=== PATIENT | female | born 2005 | race Caucasian/White ===

== ENCOUNTER 2024-07-04 14:39 | Emergency (ER) | payer BC, SELFPAY ==
[2024-07-04 14:43] VITALS: BP 125/76; PULSE 94; TEMP 36.9; O2SAT 98; BMI 23.3
--- NOTE | 2024-07-04 14:53 | ED_ITS ---
HPI - Ear Problem General Chief complaint: Ear Stated complaint: EARACHE Time Seen by Provider: 07/04/24 14:41 Source: patient and family Mode of arrival: walk-in Limitations: no limitations History of Present Illness HPI Narrative: Patient is a 18-year-old female who presents to the emergency department for the evaluation of left ear pain that began last night. She reports a pressure and plugged sensation to the left ear and believes that there was drainage from the left ear although she did not look at it so she does not know what it may have been, she states I think it was clear . No fevers, upper respiratory symptoms, nasal congestion or coughing. She has no concern for . No medications prior to arrival Related Data Previous Rx's ?Medication ?Instructions ?Recorded cetirizine 5 mg-pseudoephedrine ER 1 tab PO BID #10 tabs 07/04/24 120 mg tablet,extended release,12hr (Zyrtec-D) Allergies Allergy/AdvReac Type Severity Reaction Status Date / Time No Known Drug Allergies Allergy Verified 07/04/24 14:47 Review of Systems ROS Constitutional Denies: fever or chills Ears, nose, mouth, and throat Reports: ear pain and ear discharge; Denies: throat pain or nasal congestion Cardiovascular Denies: chest pain Respiratory Denies: shortness of breath Gastrointestinal Denies: nausea or vomiting Musculoskeletal Denies: back pain Integumentary/Breast Denies: rash Neurological Denies: headache, numbness in extremities or weakness in extremities Hematologic/Lymphatic Denies: easy bruising or easy bleeding Exam Narrative Exam Narrative: Gen.: Awake, alert, in no distress Head: Normocephalic, atraumatic ENT: Moist mucous membranes bilateral TMs are partially obscured by dark wax, no erythema or injection of the TMs. Left external canal is mildly erythematous and tender. No drainage or bleeding noted Respiratory: No respiratory distress Extremities: Moves extremities equally Psych: Normal mood and affect Neuro: No focal neuro deficit Skin: Warm, dry, intact Constitutional Vital Signs, click to edit/add: Last Vital Signs Temp 98.4 F 07/04/24 14:43 Pulse 94 H 07/04/24 14:43 Resp 16 07/04/24 14:43 BP 125/76 07/04/24 14:43 Pulse Ox 98 07/04/24 14:43 O2 Del Method Room Air 07/04/24 14:43 Course Vital Signs Vital signs: Vital Signs Temperature 98.4 F 07/04/24 14:43 Pulse Rate 94 H 07/04/24 14:43 Respiratory Rate 16 07/04/24 14:43 Blood Pressure 125/76 07/04/24 14:43 Pulse Oximetry 98 07/04/24 14:43 Oxygen Delivery Method Room Air 07/04/24 14:43 Temperature 98.4 F 07/04/24 14:43 Pulse Rate 94 H 07/04/24 14:43 Respiratory Rate 16 07/04/24 14:43 Blood Pressure 125/76 07/04/24 14:43 Pulse Oximetry 98 07/04/24 14:43 Oxygen Delivery Method Room Air 07/04/24 14:43 Medical Decision Making MDM Narrative Medical decision making narrative: Exam is consistent with mild left otitis externa and cerumen in the canals, patient given Ciprodex drops to be used in the left ear for 5 days. Zyrtec also prescribed for home for plugged sensation. Follow-up with PCP and return to the ER if symptoms change or worsen SUPERVISED APC VISIT, PHYSICIAN ATTESTATION: Based on the medical record the care appears appropriate. ? Medical Records Medical records reviewed: Yes I reviewed the patient's medical records Discharge Plan Discharge Stand Alone Forms: Work/School Release, Portal Instructions Chief Complaint: Ear Clinical Impression: Left otitis externa, Left ear pain Patient Disposition: Home, Self-Care Time of Disposition Decision: 14:52 Condition: Good Prescriptions / Home Meds: New cetirizine-pseudoephedrine [Zyrtec-D] 5-120 mg tablet extended release 12 hr 1 tab PO BID Qty: 10 0RF Print Language: Estonian Instructions: [facility] (ED) Referrals: DEANNE GIRON [Primary Care Provider] - 1 week
[2024-07-04] MEDS: CIPROFLOXACIN HCL/DEXAMETH 0.3%/0.1% OTIC SUSP 150 DROP/7.5 ML BOTTLE OT (14:58)
== END 2024-07-04 14:59 | disposition home or self-care (01) ==
PROVIDERS: Emergency Provider Emergency Medicine; PCP Family Medicine
DX: H60.92 Unspecified otitis externa, left ear (principal); H92.02 Otalgia, left ear
CPT/HCPCS: 99283

== ENCOUNTER 2025-07-29 13:36 | Emergency (ER) | payer BC, MEDICAID, SELFPAY ==
--- OUTSIDE RECORDS SUMMARY | 2025-07-09 11:33 | XMS_ITS ---
Author Name Auto Generated Organization OHIP Care Team Providers Care Event Promoter Name Role Phone JOSH DIAL Attending Unavailable LAZARUS ESPINOSA Attending Unavailable JOSH DIAL Attending Unavailable LAZARUS ESPINOSA Referring Unavailable JOSH DIAL Attending Unavailable JOSH DIAL Attending Unavailable JOSH DIAL Attending Unavailable SELF Referring Unavailable NITZA JAIMES Attending Unavailable MARLEN THOMAS Attending Unavailable DARNELL MOSER Attending Unavailable LAZARUS ESPINOSA Referring Unavailable LAZARUS ESPINOSA Referring Unavailable Mario Crowder Admitting Unavailable Mario Crowder Attending Unavailable NO FAMILY, PHYSICIAN Primary Care Unavailable PROBLEMS DATE TYPE CONDITION / CODE ATTENDING STATUS [facility] 06/29/2025 Active Chronic migraine without aura, intractable, without status migrainosus / G43.719(ICD-10) NITZA JAIMES Active [facility] 04/06/2025 Active Breast pain / N64.4(ICD-10) DARNELL MOSER Active [facility] 03/09/2025 Active New Patient / UNK(Unknown) MARLEN THOMAS Active [facility] 01/12/2025 Unknown Abdominal disten jesenia (gaseous) / R14.0(ICD-10) Mario Crowder Active [facility] PROCEDURES No Procedure Records Found RESULTS PROGRESS Observed: 06/29/2025 1:00 PM Status: COMPLETED Source: [facility] HNO ID: [id number] Author: NITZA JAIMES PA-C Service: ? Author Type: Physician Director [employer] Type: Progress Notes Filed: 06/29/2025 13:24 Note Text: Headache Center - Follow up Virtual Visit This visit was conducted as a virtual visit, with patient's permission, via Zoom. Patient location - [place] Santoro was identified by name and and consented to the video evaluation and its limitations. Based on this evaluation it may be necessary for them to schedule a follow up evaluation with me or other neurologists for formal physical examination and if necessary,other studies. I have communicated my name and active licensure. The patient's identity and physical location were verified at the time of this visit. Either the patient or their legal industrial relations representative has been informed of the risks and benefits of -- and alternatives to -- treatment through a remote evaluation and consents to proceed with the evaluation remotely. Accompanied by: Self Primary Problem List: There is no problem list on file for this patient. Chief Complaint: 3 month follow up Impression and Plan from last visit: 03/09/[address] Thomas IMPRESSION: Komal Santoro is a 19 year old year old female with a significant past medical history of OCD (on Prozac and Buspar), IBS, acne who presents for further evaluation regarding headaches. On today's evaluation, the patient meets criteria for chronic migraine. - In the setting of a normal neurological physical examination and typical migraine features, there is no indication for additional neuroimaging at this time. - For symptomatic relief, on a preventative basis, patient was initiated on Topiramate 100 mg qHS. The patient was counseled to take this medication on a daily basis to reduce the severity and frequency of migraine. Keeping a strict log of headaches was encouraged and discussed with the patient. - As an abortive agent, the patient was initiated on Rizatriptan 10 mg PRN at the onset of the headache, which can be repeated if symptoms do not resolve in 2 hours. The patient was counseled not to exceed any abortive agents more than 10 days a month with the concern for medication overuse headache. - Follow-up in 3-6 months PRN. PLAN: Diagnosis: Chronic migraine Preventive: Topiramate 100 mg qHS Abortive: Rizatriptan 10 mg PRN Interval Headache History: Komal Santoro is a 19 year old year old female, with a history of OCD, IBS, acne and chronic migraine following up today virtually for 3 month follow up. Komal reports a 50% improvement in migraine frequency since starting Topamax. She currently experiences approximately 10 severe migraine days, 10 mild days, and 10 headache-free days per month. She has tried rizatriptan without relief and did not experience any side effects. She has limited her use of Excedrin to 1-2 times over the last 3-4 months, whereas she previously used it more frequently. Komal reports daily paresthesias in her hands and feet, which are not overly bothersome - attributes to topamax. She denies any history of heart attack, stroke, or coronary artery disease. She is unsure of her current blood pressure and pulse, but chart review indicates readings in the 120s-130s/70s with pulses in the mid to high 70s or 80s. Headache 1 Onset: - Age 9 Location: holcephalic Quality/Description: throbbing Associated Symptoms: Photophobia: yes Phonophobia: yes Nausea: yes Vomiting: yes Other symptoms: lightheadedness and osmophobia Worse with activity: yes Number of migraine headache days/month: 10 Number of NON-migraine headache days/month: 10 Total Number of headache days/month: 20 Number of headache free days/month: 10 Aura: blurred vision and none Days missed from work or school in the last month: 2 days Preventative: topamax 100mg Abortive: rizatriptan 10mg Contraception: IUD Anti-Anxiety Buspirone (Buspar) Anti-Convulsant Topiramate (Topamax, Trokendi XL, Qudexy) Anti-Depressant and Antipsychotic Fluoxetine (Prozac) Sertraline (Zoloft) Anti-Migraine Rizatriptan (Maxalt) Over the Counter Medications Acetaminophen/Aspirin/Caffeine (Excedrin, Goody?s) No past medical history on file. No past surgical history on file. ALLERGIES Not on File Current Medications: isotretinoin (ACCUTANE PO) Take by mouth. INTRAUTERINE DEVICE, IUD, INTRAUTERINE by INTRAUTERINE route. busPIRone (BUSPAR) 10 mg tablet Take 1 tablet by mouth once daily. Clindamycin Phosphate (CLEOCIN T) 1 % lotion Apply to affected area two times a day. FLUoxetine (PROZAC) 20 mg capsule Take 1 capsule by mouth once daily. CAPMIST DM 60-15-400 mg tab Take 1 tablet by mouth every 4 hours as needed. LINZESS 72 mcg capsule Take 1 capsule by mouth once daily. omeprazole (PRILOSEC) 20 mg capsule Take 1 capsule by mouth once daily. spironolactone (ALDACTONE) 50 mg tablet Take 50 mg by mouth once daily. Sulfacetamide Sodium, Acne, 10 % susp apply a thin layer to the face DAILY FOR 30 DAYS metoprolol succinate ER (TOPROL XL) 25 mg 24 hr tablet Take 1 tablet by mouth once daily. topiramate (TOPAMAX) 100 mg tablet Take 1 tablet by mouth daily at bedtime. SUMAtriptan (IMITREX) 100 mg tablet Take 1 tablet by mouth as needed for migraine headache (see administration instructions). May repeat dose after 2 hours if needed. Maximum daily dose is 200 mg per day. Max 9 to 10 days a month. I have reviewed the Health Status Assessment responses and discussed these with the patient: yes Nitza Jaimes PA-C HEADACHE SCORES: 03/07/2025 06/29/2025 Headache Questions ID Migraine Screener: 3 (Positive) ER visits in the last year: 3 ER visits since last office visit: 0 Hospital stays in the last year: 0 Hospital stays since last office visit 0 Limited ADLs in the last month: 15 15 Days missed from work or school in the last month: 5 2 Days headache pain free in the last month: 5 10 Days per month with ALL of the following symptoms - decreased productivity, light sensitivity and nausea: 10 10 Initial improvement of headache after botox injection at last visit: Not applicable, I did not have a botox injection at my last visit PRN medication usage in the last month: 25 5 Patient impression of improvement since last visit: Minimally improved 03/07/2025 06/29/2025 HIT-6 HIT-6 66 (Severe impact) 65 (Severe impact) 03/07/2025 06/29/2025 ANNIE - 2/7 SCORES ANNIE-2 Score 2 1 03/07/2025 06/29/2025 Migraine Specific QOL - Higher scores indicate better HRQL Role Function-Restrictive Transformed Score (range: 0-100) 40 57.14 Role Function-Preventive Transformed Score (range: 0-100) 45 60 Emotional Function Transformed Score (range: 0-100) 46.67 60 03/07/2025 06/29/2025 PHQ-9 Score 5 2 Review of Systems: Review of system: Patient reports no change from the prior visit. Physical Examination: Vital Signs: No vital signs taken for this visit due to nature of virtual visit. General: well appearing, in no acute distress, alert Pain Behaviors: no pain behaviors observed Neurological: Mental Status: Alert and oriented to person, place and time. Affect is normal. Speech is spontaneous and fluent without dysarthria. Short and detention memory, cognition and general fund of knowledge are good. Attention span and concentration are excellent. HEENT: Head is normocephalic and features were symmetric. Musculoskeletal: Patient able to sit up right in chair for entirety of visit. Cranial Nerves: III, IV, -EOMI: full. VII-face is symmetric without evidence of weakness. VIII-hearing intact. IMPRESSION/PLAN: Chronic migraine without aura, intractable, without status migrainosus (primary encounter diagnosis) Komal Santoro is a 19 year old year old female, with a history of OCD, IBS, acne and chronic migraine following up today virtually for 3 month follow up. Their neurological examination is essentially normal at this visit although this is limited due to nature of telehealth. 1. Chronic migraine without aura, intractable, without status migrainosus (G43.719) - Discussed options: increase Topamax, add metoprolol to Topamax, or switch from Topamax to metoprolol; patient prefers to continue Topamax and add metoprolol. - Start metoprolol ER 25 mg PO QHS; reviewed potential side effects including constipation, fatigue, and exercise intolerance. - If metoprolol is well-tolerated, may consider tapering off Topamax in the future. - Trial sumatriptan 100 mg PRN; reviewed dosing and potential side effects; discussed [id number] nature of triptans and availability of other options if ineffective. - Discontinue rizatriptan - Patient agrees to treatment plan and verbalizes understanding. - Follow-up in 3 months. Recording using [employer] software for draft documentation of the visit was discussed with the patient/authorized industrial relations representative; all questions welcomed and answered. Patient/authorized industrial relations representative agreed to proceed HEADACHE MANAGEMENT: (You are the primary guardian of your health and headache. Keep track of all medications: This includes the reason for use, side effects and benefits.) MEDICATION TREATMENT: Medications to Start Taking metoprolol succinate ER (TOPROL XL) 25 mg 24 hr tablet Take 1 tablet by mouth once daily. topiramate (TOPAMAX) 100 mg tablet Take 1 tablet by mouth daily at bedtime. SUMAtriptan (IMITREX) 100 mg tablet Take 1 tablet by mouth as needed for migraine headache (see administration instructions). May repeat dose after 2 hours if needed. Maximum daily dose is 200 mg per day. Max 9 to 10 days a month. Follow-up: 3 months, PRN I spent a total of 15 minutes on the date of the service which included preparing to see the patient, [id number] patient care, completing clinical documentation, obtaining and/or reviewing separately obtained history, performing a medically appropriate examination, counseling and educating the patient/family/caregiver, and ordering medications, tests, or procedures. Nitza Jaimes PA-C Headache Section [facility] [employer] D BREAST LTD RT Observed: 3:45 PM Status: F Source: [facility] * * *Final Report* * * DATE OF EXAM: Apr 06 2025 3:45PM CAW 0594 - Ludesi BREAST LTD RT / PROCEDURE REASON: Breast pain * * * * Physician Interpretation * * * * RESULT: [address] [place] [address] #[id number] - [employer] US BREAST Omniata RT #[id number] - [facility] Super Vitamin D BREAST LTD LT HISTORY: 19 year-old patient presents for diagnostic evaluation of focal pain in the lower outer right breast and palpable area in the upper outer left breast. Patient states no personal history of breast cancer. The patient has a family history of breast cancer. COMPARISON STUDIES: No prior imaging studies are available for comparison. ULTRASOUND TECHNIQUE: Targeted ultrasound of the indicated area was performed. Aburto scale images were saved. ULTRASOUND FINDINGS: There are no suspicious sonographic findings to correspond with the focal pain in the right breast at 6 o'clock, at 7 o'clock and at 8 o'clock. There are no suspicious sonographic findings to correspond with the area of palpable concern in the left breast at 1 o'clock, at 2 o'clock, at 3 o'clock and at 12 o'clock. IMPRESSION: There is no suspicious imaging finding to correspond with the focal pain in the right breast at 6 o'clock, at 7 o'clock and at 8 o'clock. Clinical evaluation and follow-up recommended for symptoms without imaging correlate. There is no suspicious imaging finding to correspond with the area of palpable concern in the left breast at 1 o'clock, at 2 o'clock, at 3 o'clock and at 12 o'clock. Clinical evaluation and follow-up recommended for symptoms without imaging correlate. The patient had outside ultrasound in March 2024 recommending 6-month follow-up of the finding at the 3:00 axis of the left breast. However, images are not available for review/comparison. Recommend obtaining outside images for complete evaluation. This was discussed with Darnell Moser CNP. There is no sonographic evidence of malignancy in the imaged areas. Follow up with ACR and NCCN guidelines. BI-RADS Category 1: Negative Interpreting Radiologist: Anna Kelly M.D. Electronically signed on: 04/06/2025 Billiard Table Mechanic: FREEMAN Transcribe Date/Time: Apr 06 2025 3:42P Dictated by : ANNA KELLY MD This examination was interpreted and the report reviewed and electronically signed by: ANNA KELLY MD on Apr 06 2025 4:17PM EST [id number] [employer] Observed: 3:42 PM Status: F Source: [facility] * * *Final Report* * * DATE OF EXAM: Apr 06 2025 3:42PM CAW 0593 - Ludesi BREAST Omniata LT / PROCEDURE REASON: Breast pain * * * * Physician Interpretation * * * * RESULT: [place] [id number] [facility] [address] [place] [address] #[id number] - [facility] US BREAST LTD #[id number] - [facility] BREAST LTD LT HISTORY: 19 year-old patient presents for diagnostic evaluation of focal pain in the lower outer right breast and palpable area in the upper outer left breast. Patient states no personal history of breast cancer. The patient has a family history of breast cancer. COMPARISON STUDIES: No prior imaging studies are available for comparison. ULTRASOUND TECHNIQUE: Targeted ultrasound of the indicated area was performed. Aburto scale images were saved. ULTRASOUND FINDINGS: There are no suspicious sonographic findings to correspond with the focal pain in the right breast at 6 o'clock, at 7 o'clock and at 8 o'clock. There are no suspicious sonographic findings to correspond with the area of palpable concern in the left breast at 1 o'clock, at 2 o'clock, at 3 o'clock and at 12 o'clock. IMPRESSION: There is no suspicious imaging finding to correspond with the focal pain in the right breast at 6 o'clock, at 7 o'clock and at 8 o'clock. Clinical evaluation and follow-up recommended for symptoms without imaging correlate. There is no suspicious imaging finding to correspond with the area of palpable concern in the left breast at 1 o'clock, at 2 o'clock, at 3 o'clock and at 12 o'clock. Clinical evaluation and follow-up recommended for symptoms without imaging correlate. The patient had outside ultrasound in March 2024 recommending 6-month follow-up of the finding at the 3:00 axis of the left breast. However, images are not available for review/comparison. Recommend obtaining outside images for complete evaluation. This was discussed with Darnell Moser CNP. There is no sonographic evidence of malignancy in the imaged areas. Follow up with ACR and NCCN guidelines. BI-RADS Category 1: Negative Interpreting Radiologist: Anna Kelly M.D. Electronically signed on: 04/06/2025 Billiard Table Mechanic: FREEMAN Transcribe Date/Time: Apr 06 2025 3:42P Dictated by : ANNA KELLY MD This examination was interpreted and the report reviewed and electronically signed by: ANNA KELLY MD on Apr 06 2025 4:17PM EST [id number] PROGRESS Observed: 04/06/2025 2:30 PM Status: COMPLETED Source: [facility] HNO ID: [id number] Author: STANLEY MAS RT(Portia) Service: ? Author Type: Technologist Type: Progress Notes Filed: 04/06/2025 16:07 Note Text: Radiology Service Progress Note PATIENT NAME: Komal Santoro DATE OF SERVICE: April 06, 2025 TIME: 4:06 PM PATIENT IDENTITY VERIFICATION COMPLETED USING TWO (2) IDENTIFIERS: Name and Date of confirmed by patient verbally. FALL SCREENING: Has the patient had 2 falls in the last year or 1 fall with injury or currently using an Ambulatory Assistive Device (Walker, Cane, Wheelchair, Crutches, etc.)? No PATIENT GENDER DATA: Assigned female at . status: : No status: NO. PATIENT RELEVANT IMPLANT DATA REVIEWED: Yes PATIENT PRESENTS WITH AN IMPLANTABLE OR ATTACHED HOOP COILER: No RADIOLOGY DEPARTMENT: Mammography PERIPHERAL IV DATA: Not applicable SIGNED BY: RT Avinash(R) April 06, 2025 4:06 PM PROGRESS Observed: 04/06/2025 1:00 PM Status: COMPLETED Source: [facility] HNO ID: [id number] Author: DARNELL MOSER APRN.CALL OUT CLERK Service: ? Author Type: Nurse Practitioner Type: Progress Notes Filed: 04/06/2025 16:37 Note Text: MEDICAL BREAST HISTORY of PRESENT ILLNESS: Komal Santoro is a 19 year old premenopausal woman who presents to the [facility] [place] today for evaluation of breast pain and a lump. Patient reports having new left breast pain for the past 4-5 months. She recently had a baby about 15 months ago and stopped about 10-11 months ago. She has seen her OB provider during this time and a left breast ultrasound was completed revealing a 3.0 x 2.1 x 0.4 cm nonspecific area of intermediate echogenicity. She was referred to the breast center for further care and work up. She notes that her breast pain started on the left side and she didn't feel an area of concern at first, but her daughter laid on top of her breast which elicited the pain. She also reports now having pain on her right breast as well. Patient otherwise denies any new skin changes, dimpling, pain, nipple discharge, or nipple inversion of either breast. PERSONAL BREAST HISTORY: Past breast history (prior to this encounter) is as follows: Breast biopsy: No Breast cysts: No Breast surgery: No Breast cancer: No CANCER SURVEILLANCE: Mammograms: No Breast MRI: No RISK FACTORS FOR BREAST CANCER: Age at the onset of menses: 13 years of age. P: 1 Age at the of first child: 18 years of age. She breast fed for 6 months total. Age at menopause: The patient is not menopausal at this time. Post-menopausal hormone therapy: Not applicable She has an intact uterus and ovaries She uses an IUD. History of Mantle Radiation prior to the age of 29: No Current Weight: 146 lb Mammographic density: Unknown Personal History of Benign Atypical Breast Biopsy: No Alcohol use: Never PAST MEDICAL HISTORY: No past medical history on file. PAST SURGICAL HISTORY: No past surgical history on file. SOCIAL HISTORY: Social History Tobacco Use Smoking status: Never Passive exposure: Never Smokeless tobacco: Never Substance Use Topics Alcohol use: Not Currently Drug use: Never Caffeine intake: 1 cup of coffee couple times a week Exercise: Few times a week. FAMILY HISTORY: Family history of breast cancer: maternal aunt of breast cancer around 50-60s. Family history of ovarian cancer: None Number of sisters: 1 Number of maternal aunts: 3 Number of paternal aunts: 2 Ashkenazi Ancestry: Patient is unsure of ancestry. Has Patient had Genetic Testing? No Other Cancer: None There is no family history of prostate, colon, uterine, pancreatic, gastric, brain, renal cell or thyroid cancer. There is no family history of melanoma, sarcoma or leukemia. No family history on file. MEDICATIONS: busPIRone (BUSPAR) 10 mg tablet Take 1 tablet by mouth once daily. Clindamycin Phosphate (CLEOCIN T) 1 % lotion Apply to affected area two times a day. FLUoxetine (PROZAC) 20 mg capsule Take 1 capsule by mouth once daily. CAPMIST DM 60-15-400 mg tab Take 1 tablet by mouth every 4 hours as needed. LINZESS 72 mcg capsule Take 1 capsule by mouth once daily. omeprazole (PRILOSEC) 20 mg capsule Take 1 capsule by mouth once daily. spironolactone (ALDACTONE) 50 mg tablet Take 50 mg by mouth once daily. Sulfacetamide Sodium, Acne, 10 % susp apply a thin layer to the face DAILY FOR 30 DAYS topiramate (TOPAMAX) 25 mg tablet Take 1 tablet by mouth daily at bedtime for 7 days, THEN 2 tablets daily at bedtime for 7 days, THEN 3 tablets daily at bedtime for 7 days, THEN 4 tablets daily at bedtime. rizatriptan (MAXALT) 10 mg tablet Take 1 tablet by mouth as needed. AT ONSET OF HEADACHE. MAY REPEAT AFTER 2 HOURS. DO NOT EXCEED 30 MG PER DAY. ALLERGIES: ALLERGIES Not on File REVIEW OF SYSTEMS: GENERAL: No weight loss, malaise or fevers NECK: Negative for lumps, goiter, pain and significant neck swelling RESPIRATORY: Negative for cough, hemoptysis, wheezing, COPD, dyspnea or shortness of breath CARDIOVASCULAR: Negative for chest pain, leg swelling, hypertension, CHF or palpitations GI: No nausea, vomiting, or diarrhea : No history of dysuria, frequency or incontinence ELEVATOR MECHANIC APPRENTICE: Negative for abnormal vaginal bleeding, abnormal vaginal discharge MUSCULOSKELETAL: Negative for joint pain or swelling, back pain or muscle pain SKIN: Negative for lesions, rash, and itching HEMATOLOGY/LYMPHOLOGY: Negative for prolonged bleeding, bruising easily or swollen nodes The sensitive examination was discussed with the Patient or Patient's Authorized Pole Peeler. As applicable, any other physician, advance practice provider, medical student, or other health professional student that will be observing or involved in the sensitive examination for educational or training purposes was discussed with the Patient or Authorized Pole Peeler. The Patient or Authorized Pole Peeler has agreed to proceed with the sensitive examination. (Sensitive examination includes inspection and/or palpation of the breasts, pelvis, prostate and anorectal regions) PHYSICAL EXAM: BP 130/74 Pulse 80 Temp 36.7 ?C (98 ?F) Resp 20 Ht 165.1 cm (5' 5 ) Wt 66.5 kg (146 lb 9.7 oz) LMP 03/05/2025 (Exact Date) SpO2 100% BMI 24.40 kg/m? Body mass index is 24.4 kg/m?. GENERAL:well-nourished, healthy, alert and oriented x 3, calm SKIN:warm, dry, skin color, texture, turgor normal HEAD/EYES:normocephalic, atraumatic, and anicteric NECK: supple, symmetrical RESPIRATORY: Respirations regular AND non-labored MUSCULOSKELETAL: No observed limitations in range of motion of upper extremities. Patient ambulates independently BREASTS: The Patient was examined in the upright and supine positions. Breasts are symmetric. There are bilateral fibrocystic changes. LEFT BREAST: In the left upper outer quadrant there is a palpable area of dense breast tissue, no discrete mass palpated. Associated tenderness with palpation. The breast skin and nipple areolar complexes appear normal without retraction or lesions. There is no nipple discharge. There is no other clinical abnormality noted in left breast. RIGHT BREAST: At 6-7 o'clock there is a tender area with fibrocystic features. The breast skin and nipple areolar complexes appear normal without retraction or lesions. There is no nipple discharge. There is no dominant mass or clinical abnormality noted in right breast. LEFT REGIONAL LYMPH NODES: There is no concerning supraclavicular, infraclavicular or axillary lymphadenopathy RIGHT REGIONAL LYMPH NODES: There is no concerning supraclavicular, infraclavicular or axillary lymphadenopathy IMAGING: Results US BREAST LTD LEFT (Acc#[id number]) (Order [id number]) Patient Info Patient Name Sex Komal Husain ([id number]) Female 2005 04/06/2025 4:23 PM - Radiology, [place] Impression IMPRESSION: There is no suspicious imaging finding to correspond with the focal pain in the right breast at 6 o'clock, at 7 o'clock and at 8 o'clock. Clinical evaluation and follow-up recommended for symptoms without imaging correlate. There is no suspicious imaging finding to correspond with the area of palpable concern in the left breast at 1 o'clock, at 2 o'clock, at 3 o'clock and at 12 o'clock. Clinical evaluation and follow-up recommended for symptoms without imaging correlate. The patient had outside ultrasound in March 2024 recommending 6-month follow-up of the finding at the 3:00 axis of the left breast. However, images are not available for review/comparison. Recommend obtaining outside images for complete evaluation. This was discussed with Darnell Moser CNP. There is no sonographic evidence of malignancy in the imaged areas. Follow up with ACR and NCCN guidelines. BI-RADS Category 1: Negative Interpreting Radiologist: Anna Kelly M.D. Electronically signed on: 04/06/2025 Billiard Table Mechanic: FREEMAN Transcribe Date/Time: Apr 06 2025 3:42P Dictated by : ANNA KELLY MD This examination was interpreted and the report reviewed and electronically signed by: ANNA KELLY MD on Apr 06 2025 4:17PM EST Results US BREAST LTD RIGHT (Acc#[id number]) (Order [id number]) Patient Info Patient Name Sex Komal Husain ([id number]) Female 2005 04/06/2025 4:23 PM - Radiology, Oru In Impression IMPRESSION: There is no suspicious imaging finding to correspond with the focal pain in the right breast at 6 o'clock, at 7 o'clock and at 8 o'clock. Clinical evaluation and follow-up recommended for symptoms without imaging correlate. There is no suspicious imaging finding to correspond with the area of palpable concern in the left breast at 1 o'clock, at 2 o'clock, at 3 o'clock and at 12 o'clock. Clinical evaluation and follow-up recommended for symptoms without imaging correlate. The patient had outside ultrasound in March 2024 recommending 6-month follow-up of the finding at the 3:00 axis of the left breast. However, images are not available for review/comparison. Recommend obtaining outside images for complete evaluation. This was discussed with Darnell Moser CNP. There is no sonographic evidence of malignancy in the imaged areas. Follow up with ACR and NCCN guidelines. BI-RADS Category 1: Negative Interpreting Radiologist: Anna Kelly M.D. Electronically signed on: 04/06/2025 Billiard Table Mechanic: FREEMAN Transcrilinda Date/Time: Apr 06 2025 3:42P Dictated by : ANNA KELLY MD This examination was interpreted and the report reviewed and electronically signed by: ANNA KELLY MD on Apr 06 2025 4:17PM EST Assessment IMPRESSION/PLAN: Komal Santoro is a 19 year old female with breast pain and bilateral fibrocystic breast changes. Discussed breast pain etiology and recommendations. She is advised to completely decaffeinate her diet and have a proper bra fitting. Instructed to use Voltaren gel as needed for focal breast pain or breast massage as well. If the pain becomes severe or persistent, she may try Evening [place] Oil 1000mg twice daily for 3-4 months. She was given a breast pain informational handout. Breast ultrasounds today were negative, no sonographic evidence of malignancy. Answered all other questions and concerns. Follow up as needed. PLAN: Breast awareness discussed Breast pain discussed and recommendations given Bilateral breast ultrasound ordered today Follow up as needed I spent a total of 45 minutes minutes on the date of the service which included preparing to see the patient, [id number] patient care, completing clinical documentation, obtaining and/or reviewing separately obtained history, performing a medically appropriate examination, counseling and educating the patient/family/caregiver, ordering medications, tests, or procedures, and communicating results to the patient/family/caregiver. Darnell Moser APRN.CALL OUT CLERK CNOV Observed: 04/06/2025 1:00 PM Status: COMPLETED Source: [facility] Office Visit ([facility]) KOMAL SANTORO ([id number]) 3 F Date Time Provider Department 04/06/25 1:00 PM DARNELL MOSER During your visit today, we recorded the following information about you: Temperature Pulse Respiration Blood pressure 98 degrees 80/minute 20/minute 130/74 Weight Height 66.5 kg 1.651 m Antione Christian, RN 04/06/2025 4:37 PM Signed Additional intake questions: Has the patient had fever, nausea, vomiting, diarrhea, constipation, fatigue for > 1 week? No Does the patient have a decreased appetite? No Does patient want to see a Billiard Parlor Manager? No (yes to any of above refer patient to schedulers for dietitian appointment) ) Does patient have any new or increased numbness or tingling of extremities? No Is patient interested in fertility information? No Does patient need any prescription refills? No Does patient have an advanced directive in place? No, Patient refused referral to Social Work or Resource Center Electronically Signed By:Antione Christian RN, Amanda, APRN.[facility] 04/06/2025 4:37 PM Signed MEDICAL BREAST HISTORY of PRESENT ILLNESS: Komal Santoro is a 19 year old premenopausal woman who presents to the [facility] [place] today for evaluation of breast pain and a lump. Patient reports having new left breast pain for the past 4-5 months. She recently had a baby about 15 months ago and stopped about 10-11 months ago. She has seen her OB provider during this time and a left breast ultrasound was completed revealing a 3.0 x 2.1 x 0.4 cm nonspecific area of intermediate echogenicity. She was referred to the breast center for further care and work up. She notes that her breast pain started on the left side and she didn't feel an area of concern at first, but her daughter laid on top of her breast which elicited the pain. She also reports now having pain on her right breast as well. Patient otherwise denies any new skin changes, dimpling, pain, nipple discharge, or nipple inversion of either breast. PERSONAL BREAST HISTORY: Past breast history (prior to this encounter) is as follows: Breast biopsy: No Breast cysts: No Breast surgery: No Breast cancer: No CANCER SURVEILLANCE: Mammograms: No Breast MRI: No RISK FACTORS FOR BREAST CANCER: Age at the onset of menses: 13 years of age. P: 1 Age at the of first child: 18 years of age. She breast fed for 6 months total. Age at menopause: The patient is not menopausal at this time. Post-menopausal hormone therapy: Not applicable She has an intact uterus and ovaries She uses an IUD. History of Mantle Radiation prior to the age of 29: No Current Weight: 146 lb Mammographic density: Unknown Personal History of Benign Atypical Breast Biopsy: No Alcohol use: Never PAST MEDICAL HISTORY: No past medical history on file. PAST SURGICAL HISTORY: No past surgical history on file. SOCIAL HISTORY: Social History Tobacco Use Smoking status: Never Passive exposure: Never Smokeless tobacco: Never Substance Use Topics Alcohol use: Not Currently Drug use: Never Caffeine intake: 1 cup of coffee couple times a week Exercise: Few times a week. FAMILY HISTORY: Family history of breast cancer: maternal aunt of breast cancer around 50-60s. Family history of ovarian cancer: None Number of sisters: 1 Number of maternal aunts: 3 Number of paternal aunts: 2 Ashkenazi Ancestry: Patient is unsure of ancestry. Has Patient had Genetic Testing? No Other Cancer: None There is no family history of prostate, colon, uterine, pancreatic, gastric, brain, renal cell or thyroid cancer. There is no family history of melanoma, sarcoma or leukemia. No family history on file. MEDICATIONS: busPIRone (BUSPAR) 10 mg tablet Take 1 tablet by mouth once daily. Clindamycin Phosphate (CLEOCIN T) 1 % lotion Apply to affected area two times a day. FLUoxetine (PROZAC) 20 mg capsule Take 1 capsule by mouth once daily. CAPMIST DM 60-15-400 mg tab Take 1 tablet by mouth every 4 hours as needed. LINZESS 72 mcg capsule Take 1 capsule by mouth once daily. omeprazole (PRILOSEC) 20 mg capsule Take 1 capsule by mouth once daily. spironolactone (ALDACTONE) 50 mg tablet Take 50 mg by mouth once daily. Sulfacetamide Sodium, Acne, 10 % susp apply a thin layer to the face DAILY FOR 30 DAYS topiramate (TOPAMAX) 25 mg tablet Take 1 tablet by mouth daily at bedtime for 7 days, THEN 2 tablets daily at bedtime for 7 days, THEN 3 tablets daily at bedtime for 7 days, THEN 4 tablets daily at bedtime. rizatriptan (MAXALT) 10 mg tablet Take 1 tablet by mouth as needed. AT ONSET OF HEADACHE. MAY REPEAT AFTER 2 HOURS. DO NOT EXCEED 30 MG PER DAY. ALLERGIES: ALLERGIES Not on File REVIEW OF SYSTEMS: GENERAL: No weight loss, malaise or fevers NECK: Negative for lumps, goiter, pain and significant neck swelling RESPIRATORY: Negative for cough, hemoptysis, wheezing, COPD, dyspnea or shortness of breath CARDIOVASCULAR: Negative for chest pain, leg swelling, hypertension, CHF or palpitations GI: No nausea, vomiting, or diarrhea : No history of dysuria, frequency or incontinence ELEVATOR MECHANIC APPRENTICE: Negative for abnormal vaginal bleeding, abnormal vaginal discharge MUSCULOSKELETAL: Negative for joint pain or swelling, back pain or muscle pain SKIN: Negative for lesions, rash, and itching HEMATOLOGY/LYMPHOLOGY: Negative for prolonged bleeding, bruising easily or swollen nodes The sensitive examination was discussed with the Patient or Patient's Authorized Pole Peeler. As applicable, any other physician, advance practice provider, medical student, or other health professional student that will be observing or involved in the sensitive examination for educational or training purposes was discussed with the Patient or Authorized Pole Peeler. The Patient or Authorized Pole Peeler has agreed to proceed with the sensitive examination. (Sensitive examination includes inspection and/or palpation of the breasts, pelvis, prostate and anorectal regions) PHYSICAL EXAM: BP 130/74 Pulse 80 Temp 36.7 ?C (98 ?F) Resp 20 Ht 165.1 cm (5' 5 ) Wt 66.5 kg (146 lb 9.7 oz) LMP 03/05/2025 (Exact Date) SpO2 100% BMI 24.40 kg/m? Body mass index is 24.4 kg/m?. GENERAL:well-nourished, healthy, alert and oriented x 3, calm SKIN:warm, dry, skin color, texture, turgor normal HEAD/EYES:normocephalic, atraumatic, and anicteric NECK: supple, symmetrical RESPIRATORY: Respirations regular AND non-labored MUSCULOSKELETAL: No observed limitations in range of motion of upper extremities. Patient ambulates independently BREASTS: The Patient was examined in the upright and supine positions. Breasts are symmetric. There are bilateral fibrocystic changes. LEFT BREAST: In the left upper outer quadrant there is a palpable area of dense breast tissue, no discrete mass palpated. Associated tenderness with palpation. The breast skin and nipple areolar complexes appear normal without retraction or lesions. There is no nipple discharge. There is no other clinical abnormality noted in left breast. RIGHT BREAST: At 6-7 o'clock there is a tender area with fibrocystic features. The breast skin and nipple areolar complexes appear normal without retraction or lesions. There is no nipple discharge. There is no dominant mass or clinical abnormality noted in right breast. LEFT REGIONAL LYMPH NODES: There is no concerning supraclavicular, infraclavicular or axillary lymphadenopathy RIGHT REGIONAL LYMPH NODES: There is no concerning supraclavicular, infraclavicular or axillary lymphadenopathy IMAGING: Results US BREAST LTD LEFT (Acc#[id number]) (Order [id number]) Patient Info Patient Name Sex Komal Husain ([id number]) Female 2005 04/06/2025 4:23 PM - Radiology, Oru In Impression IMPRESSION: There is no suspicious imaging finding to correspond with the focal pain in the right breast at 6 o'clock, at 7 o'clock and at 8 o'clock. Clinical evaluation and follow-up recommended for symptoms without imaging correlate. There is no suspicious imaging finding to correspond with the area of palpable concern in the left breast at 1 o'clock, at 2 o'clock, at 3 o'clock and at 12 o'clock. Clinical evaluation and follow-up recommended for symptoms without imaging correlate. The patient had outside ultrasound in March 2024 recommending 6-month follow-up of the finding at the 3:00 axis of the left breast. However, images are not available for review/comparison. Recommend obtaining outside images for complete evaluation. This was discussed with Darnell Moser CNP. There is no sonographic evidence of malignancy in the imaged areas. Follow up with ACR and NCCN guidelines. BI-RADS Category 1: Negative Interpreting Radiologist: Anna Kelyl M.D. Electronically signed on: 04/06/2025 Billiard Table Mechanic: FREEMAN Transcribe Date/Time: Apr 06 2025 3:42P Dictated by : ANNA KELLY MD This examination was interpreted and the report reviewed and electronically signed by: ANNA KELLY MD on Apr 06 2025 4:17PM EST Results US BREAST LTD RIGHT (Acc#[id number]) (Order [id number]) Patient Info Patient Name Sex Komal Husain ([id number]) Female 2005 04/06/2025 4:23 PM - Radiology, Oru In Impression IMPRESSION: There is no suspicious imaging finding to correspond with the focal pain in the right breast at 6 o'clock, at 7 o'clock and at 8 o'clock. Clinical evaluation and follow-up recommended for symptoms without imaging correlate. There is no suspicious imaging finding to correspond with the area of palpable concern in the left breast at 1 o'clock, at 2 o'clock, at 3 o'clock and at 12 o'clock. Clinical evaluation and follow-up recommended for symptoms without imaging correlate. The patient had outside ultrasound in March 2024 recommending 6-month follow-up of the finding at the 3:00 axis of the left breast. However, images are not available for review/comparison. Recommend obtaining outside images for complete evaluation. This was discussed with Darnell Moser CNP. There is no sonographic evidence of malignancy in the imaged areas. Follow up with ACR and NCCN guidelines. BI-RADS Category 1: Negative Interpreting Radiologist: Anna Kelly M.D. Electronically signed on: 04/06/2025 Billiard Table Mechanic: FREEMAN Transcribe Date/Time: Apr 06 2025 3:42P Dictated by : ANNA KELLY MD This examination was interpreted and the report reviewed and electronically signed by: ANNA KELLY MD on Apr 06 2025 4:17PM EST Assessment IMPRESSION/PLAN: Komal Santoro is a 19 year old female with breast pain and bilateral fibrocystic breast changes. Discussed breast pain etiology and recommendations. She is advised to completely decaffeinate her diet and have a proper bra fitting. Instructed to use Voltaren gel as needed for focal breast pain or breast massage as well. If the pain becomes severe or persistent, she may try Evening [place] Oil 1000mg twice daily for 3-4 months. She was given a breast pain informational handout. Breast ultrasounds today were negative, no sonographic evidence of malignancy. Answered all other questions and concerns. Follow up as needed. PLAN: Breast awareness discussed Breast pain discussed and recommendations given Bilateral breast ultrasound ordered today Follow up as needed I spent a total of 45 minutes minutes on the date of the service which included preparing to see the patient, [id number] patient care, completing clinical documentation, obtaining and/or reviewing separately obtained history, performing a medically appropriate examination, counseling and educating the patient/family/caregiver, ordering medications, tests, or procedures, and communicating results to the patient/family/caregiver. Darnell Moser APRN.CALL OUT CLERK Referring Provider: LAZARUS ESPINOSA [[id number]] Allergies As of Date: 04/06/2025 (Not on File) Date Reviewed: 04/06/2025 Reviewed by: Antione Christian RN - Fully Assessed Reason for Visit: Consult [173] Primary Visit Diagnosis:Breast pain [N64.4] Order(s):US BREAST LTD RIGHT [[id number]] Order #: [id number] FUTURE US BREAST LTD LEFT [[id number]] Order #: [id number] FUTURE Prescriptions as of 04/06/2025 - busPIRone (BUSPAR) 10 mg tablet Take 1 tablet by mouth once daily. - Clindamycin Phosphate (CLEOCIN T) 1 % lotion Apply to affected area two times a day. - FLUoxetine (PROZAC) 20 mg capsule Take 1 capsule by mouth once daily. - CAPMIST DM 60-15-400 mg tab Take 1 tablet by mouth every 4 hours as needed. - LINZESS 72 mcg capsule Take 1 capsule by mouth once daily. - omeprazole (PRILOSEC) 20 mg capsule Take 1 capsule by mouth once daily. - spironolactone (ALDACTONE) 50 mg tablet Take 50 mg by mouth once daily. - Sulfacetamide Sodium, Acne, 10 % susp apply a thin layer to the face DAILY FOR 30 DAYS - topiramate (TOPAMAX) 25 mg tablet Take 1 tablet by mouth daily at bedtime for 7 days, THEN 2 tablets daily at bedtime for 7 days, THEN 3 tablets daily at bedtime for 7 days, THEN 4 tablets daily at bedtime. - rizatriptan (MAXALT) 10 mg tablet Take 1 tablet by mouth as needed. AT ONSET OF HEADACHE. MAY REPEAT AFTER 2 HOURS. DO NOT EXCEED 30 MG PER DAY. Problem List As Of Date: 04/06/2025 (None) Encounter Status:Closed by DARNELL MOSER on 04/06/25 PROGRESS Observed: 04/06/2025 12:45 PM Status: COMPLETED Source: [facility] HNO ID: [id number] Author: ANTIONE CHRISTIAN RN Service: ? Author Type: Registered Nurse Type: Progress Notes Filed: 04/06/2025 16:37 Note Text: Additional intake questions: Has the patient had fever, nausea, vomiting, diarrhea, constipation, fatigue for > 1 week? No Does the patient have a decreased appetite? No Does patient want to see a Billiard Parlor Manager? No (yes to any of above refer patient to schedulers for dietitian appointment) ) Does patient have any new or increased numbness or tingling of extremities? No Is patient interested in fertility information? No Does patient need any prescription refills? No Does patient have an advanced directive in place? No, Patient refused referral to Social Work or Resource Center Electronically Signed By:Antione Christian RN PROGRESS Observed: 03/09/2025 11:34 AM Status: COMPLETED [facility] ID: [id number] Author: MARLEN THOMAS MD Service: ? Author Type: Physician Type: Progress Notes Filed: 03/20/2025 22:23 Note Text: Headache [facility] Facial [facility] [place] CC: Headaches HPI: Komal Santoro is a 19 year old year old female with a significant past medical history of OCD (on Prozac and Buspar), IBS, acne who presents for further evaluation regarding headaches. Previous records (physician notes, laboratory reports, and radiology reports) and imaging studies were reviewed and summarized. Headache 1 Onset: - Age 9 Location: holcephalic Quality/Description: throbbing Associated Symptoms: Photophobia: yes Phonophobia: yes Nausea: yes Vomiting: yes Other symptoms: lightheadedness and osmophobia Worse with activity: yes Number of migraine headache days/month: 10 Number of NON-migraine headache days/month: 30 Total Number of headache days/month: 40 Number of headache free days/month: 5 Current abortive treatment: Excedrin - 2 times/week Aura: blurred vision and none Days missed from work or school in the last month: 5 days Lifestyle: Sleep: Some trouble falling/staying asleep Diet: Minimal caffeine Lifestyle factors: Stress: 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 Records reviewed: yes Family History: No family history on file. Migraine or other headaches in the family: Yes - mother with migraine Aneurysms in a first degree relative: No Brain tumors in the family: No Other neurological illness in the family: No Headache Risk Factors and/or co-morbidities: Neck Pain: - Back Pain: - History of significant Motor Vehicle Accident: - Fibromyalgia: - Obesity: - History of Traumatic Brain Injury and/or Concussion: - History of Syncope: - Past Medical History: No past medical history on file. No past medical history pertinent negatives. Past Surgical History No past surgical history on file. Social History: Social History Tobacco Use Smoking status: Never Passive exposure: Never Smokeless tobacco: Never Substance Use Topics Alcohol use: Not Currently Drug use: Never REVIEW OF SYSTEMS: General: No fevers, sweats, chills, nightsweats, change in appetite, change in weight, change in energy. HEENT: no changes in hearing or vision, no nose bleeds or other nasal problems CV: No limb swelling, palpitations, HTN, CHF, CAD, chest pain. Pulmonary: negative for cough, wheezing and shortness of breath GI: No abdominal pain, diarrhea, constipation, heartburn, bloody stool, nausea, or vomiting. Musculoskeletal: negative for back pain, muscle pain and arthritis : no urinary tract infections, kidney stones, hematuria or nocturia Neuro: See HPI Psychiatric: negative for sleep disturbance, mood disorder and recent psychosocial stressors HEADACHE SCORES: 03/07/2025 Headache Questions ID Migraine Screener: 3 (Positive) ER visits in the last year: 3 Hospital stays in the last year: 0 Limited ADLs in the last month: 15 Days missed from work or school in the last month: 5 Days headache pain free in the last month: 5 Days per month with ALL of the following symptoms - decreased productivity, light sensitivity and nausea: 10 PRN medication usage in the last month: 25 03/07/2025 HIT-6 HIT-6 66 (Severe impact) 03/07/2025 ANNIE - 2/7 SCORES ANNIE-2 Score 2 03/07/2025 Migraine Specific QOL - Higher scores indicate better HRQL Role Function-Restrictive Transformed Score (range: 0-100) 40 Role Function-Preventive Transformed Score (range: 0-100) 45 Emotional Function Transformed Score (range: 0-100) 46.67 03/07/2025 PHQ-9 Score 5 Physical Exam: Vital Signs: BP 124/78 Pulse 74 Resp 14 Wt 68.3 kg (150 lb 9.2 oz) LMP 03/05/2025 (Exact Date) General: well appearing, in no acute distress, alert Pain Behaviors: no pain behaviors observed Skin: Color, texture, turgor normal. No rashes or lesions HEENT: Normocephalic/atraumatic. Musculoskeletal: No gross joint deformities. Neurological: Mental Status: Alert and oriented to person, place and time. Affect is normal. Speech is spontaneous and fluent without dysarthria. Short and manager long term care memory, cognition and general fund of knowledge are good. Attention span and concentration are excellent. Cranial Nerves: II-Visual ray are full. Funduscopic examination reveals no papilledema. Venous pulsations present. III, IV, -EOMI, PERRL, nystagmus absent, V-normal facial sensation to light touch. VII-face is symmetric without evidence of weakness. VIII-hearing intact. IX, X-palate elevates symmetrically. XI-SCM 5/5. XII-tongue protrudes midline with normal movements. No atrophy or fasciculations of the tongue. Motor Exam: Bulk: Normal bulk noted in all muscles tested. Strength: Delt Biceps Triceps Wrist Ext Wrist Flex Finger Flex Finger Ext Finger Abd Finger Add Right 5/5 5/5 5/5 5/5 5/5 5/5 5/5 5/5 5/5 Left 5/5 5/5 5/5 5/5 5/5 5/5 5/5 5/5 5/5 Hip Flex Hip Ext BiFem (knee flex) Quads (knee ext) Gastroc (plantflx) TibAnt (Dorsiflx) TibPost (ank add) Right 5/5 5/5 5/5 5/5 5/5 5/5 5/5 Left 5/5 5/5 5/5 5/5 5/5 5/5 5/5 Sensation: normal light touch in the upper and lower extremities. Cerebellar: Normal finger to nose; tremor: absent. No ataxia. REFLEXES Right Left Bicep 2/4 2/4 Tricep 2/4 2/4 BrRad 2/4 2/4 Knee 2/4 2/4 Ankle 2/4 2/4 Pathological Reflexes: absent. Gait: Patient's gait is normal and patient can tandem walk HEADACHE EXAM: - No tenderness to palpation during both active and passive ROM testing in the cervicogenic region - No tenderness to palpation in bilateral occipital notches - No tenderness to palpation during TMJ testing IMPRESSION: Komal Santoro is a 19 year old year old female with a significant past medical history of OCD (on Prozac and Buspar), IBS, acne who presents for further evaluation regarding headaches. On today's evaluation, the patient meets criteria for chronic migraine. - In the setting of a normal neurological physical examination and typical migraine features, there is no indication for additional neuroimaging at this time. - For symptomatic relief, on a preventative basis, patient was initiated on Topiramate 100 mg qHS. The patient was counseled to take this medication on a daily basis to reduce the severity and frequency of migraine. Keeping a strict log of headaches was encouraged and discussed with the patient. - As an abortive agent, the patient was initiated on Rizatriptan 10 mg PRN at the onset of the headache, which can be repeated if symptoms do not resolve in 2 hours. The patient was counseled not to exceed any abortive agents more than 10 days a month with the concern for medication overuse headache. - Follow-up in 3-6 months PRN. PLAN: Diagnosis: Chronic migraine Preventive: Topiramate 100 mg qHS Abortive: Rizatriptan 10 mg PRN HEADACHE MANAGEMENT: (You are the primary guardian of your health and headache. Keep track of all medications: This includes the reason for use, side effects and benefits.) MEDICATION TREATMENT: Medications to Start Taking topiramate (TOPAMAX) 25 mg tablet Take 1 tablet by mouth daily at bedtime for 7 days, THEN 2 tablets daily at bedtime for 7 days, THEN 3 tablets daily at bedtime for 7 days, THEN 4 tablets daily at bedtime. rizatriptan (MAXALT) 10 mg tablet Take 1 tablet by mouth as needed. AT ONSET OF HEADACHE. MAY REPEAT AFTER 2 HOURS. DO NOT EXCEED 30 MG PER DAY. Headache education was done. Discussed lifestyle modification including increased oral hydration, decreased caffeine, exercise and stress management. Discussed treatment options including preventive and acute medications, natural supplements, and infusion therapy. Discussed medication overuse headache and to limit use of acute treatments to no more than 2 days/week or 10 days/month. Discussed medication side effects, adverse reactions and drug interactions. Written educational materials and patient instructions outlining all of the above were given. Follow-up: 3 months Total time in minutes spent with patient: 60 minutes with more than 50% of the time spent in patient education/counselling/coordinating care with the patient and /or family. The above plan discussed with the patient. All questions answered. The patient verbalized understanding. Medical decision making was high complexity due to patient's multiple symptoms including Headache and pain, and counseling about diet, medications, and detention implications. Marlen Thomas MD Staff Neurologist Headache AND Facial Pain Section [facility] Observed: 03/09/2025 11:00 AM Status: COMPLETED Source: [facility] Office Visit ([facility]) KOMAL SANTORO ([id number]) 3 F Date Time Provider Department 03/09/25 11:00 AM MARLEN THOMAS During your visit today, we recorded the following information about you: Pulse Respiration Blood pressure Weight 74/minute 14/minute 124/78 68.3 kg Last Period 03/05/25 Marlen Thomas MD 03/20/2025 10:23 PM Signed Headache and Facial Pain Section [facility] [place] [facility]: Headaches HPI: Komal Santoro is a 19 year old year old female with a significant past medical history of OCD (on Prozac and Buspar), IBS, acne who presents for further evaluation regarding headaches. Previous records (physician notes, laboratory reports, and radiology reports) and imaging studies were reviewed and summarized. Headache 1 Onset: - Age 9 Location: holcephalic Quality/Description: throbbing Associated Symptoms: Photophobia: yes Phonophobia: yes Nausea: yes Vomiting: yes Other symptoms: lightheadedness and osmophobia Worse with activity: yes Number of migraine headache days/month: 10 Number of NON-migraine headache days/month: 30 Total Number of headache days/month: 40 Number of headache free days/month: 5 Current abortive treatment: Excedrin - 2 times/week Aura: blurred vision and none Days missed from work or school in the last month: 5 days Lifestyle: Sleep: Some trouble falling/staying asleep Diet: Minimal caffeine Lifestyle factors: Stress: 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 Records reviewed: yes Family History: No family history on file. Migraine or other headaches in the family: Yes - mother with migraine Aneurysms in a first degree relative: No Brain tumors in the family: No Other neurological illness in the family: No Headache Risk Factors and/or co-morbidities: Neck Pain: - Back Pain: - History of significant Motor Vehicle Accident: - Fibromyalgia: - Obesity: - History of Traumatic Brain Injury and/or Concussion: - History of Syncope: - Past Medical History: No past medical history on file. No past medical history pertinent negatives. Past Surgical History No past surgical history on file. Social History: Social History Tobacco Use Smoking status: Never Passive exposure: Never Smokeless tobacco: Never Substance Use Topics Alcohol use: Not Currently Drug use: Never REVIEW OF SYSTEMS: General: No fevers, sweats, chills, nightsweats, change in appetite, change in weight, change in energy. HEENT: no changes in hearing or vision, no nose bleeds or other nasal problems CV: No limb swelling, palpitations, HTN, CHF, CAD, chest pain. Pulmonary: negative for cough, wheezing and shortness of breath GI: No abdominal pain, diarrhea, constipation, heartburn, bloody stool, nausea, or vomiting. Musculoskeletal: negative for back pain, muscle pain and arthritis : no urinary tract infections, kidney stones, hematuria or nocturia Neuro: See HPI Psychiatric: negative for sleep disturbance, mood disorder and recent psychosocial stressors HEADACHE SCORES: 03/07/2025 Headache Questions ID Migraine Screener: 3 (Positive) ER visits in the last year: 3 Hospital stays in the last year: 0 Limited ADLs in the last month: 15 Days missed from work or school in the last month: 5 Days headache pain free in the last month: 5 Days per month with ALL of the following symptoms - decreased productivity, light sensitivity and nausea: 10 PRN medication usage in the last month: 25 03/07/2025 HIT-6 HIT-6 66 (Severe impact) 03/07/2025 ANNIE - 2/7 SCORES ANNIE-2 Score 2 03/07/2025 Migraine Specific QOL - Higher scores indicate better HRQL Role Function-Restrictive Transformed Score (range: 0-100) 40 Role Function-Preventive Transformed Score (range: 0-100) 45 Emotional Function Transformed Score (range: 0-100) 46.67 03/07/2025 PHQ-9 Score 5 Physical Exam: Vital Signs: BP 124/78 Pulse 74 Resp 14 Wt 68.3 kg (150 lb 9.2 oz) LMP 03/05/2025 (Exact Date) General: well appearing, in no acute distress, alert Pain Behaviors: no pain behaviors observed Skin: Color, texture, turgor normal. No rashes or lesions HEENT: Normocephalic/atraumatic. Musculoskeletal: No gross joint deformities. Neurological: Mental Status: Alert and oriented to person, place and time. Affect is normal. Speech is spontaneous and fluent without dysarthria. Short and manager long term care memory, cognition and general fund of knowledge are good. Attention span and concentration are excellent. Cranial Nerves: II-Visual ray are full. Funduscopic examination reveals no papilledema. Venous pulsations present. III, IV, -EOMI, PERRL, nystagmus absent, V-normal facial sensation to light touch. VII-face is symmetric without evidence of weakness. VIII-hearing intact. IX, X-palate elevates symmetrically. XI-SCM 5/5. XII-tongue protrudes midline with normal movements. No atrophy or fasciculations of the tongue. Motor Exam: Bulk: Normal bulk noted in all muscles tested. Strength: Delt Biceps Triceps Wrist Ext Wrist Flex Finger Flex Finger Ext Finger Abd Finger Add Right 5/5 5/5 5/5 5/5 5/5 5/5 5/5 5/5 5/5 Left 5/5 5/5 5/5 5/5 5/5 5/5 5/5 5/5 5/5 Hip Flex Hip Ext BiFem (knee flex) Quads (knee ext) Gastroc (plantflx) TibAnt (Dorsiflx) TibPost (ank add) Right 5/5 5/5 5/5 5/5 5/5 5/5 5/5 Left 5/5 5/5 5/5 5/5 5/5 5/5 5/5 Sensation: normal light touch in the upper and lower extremities. Cerebellar: Normal finger to nose; tremor: absent. No ataxia. REFLEXES Right Left Bicep 2/4 2/4 Tricep 2/4 2/4 BrRad 2/4 2/4 Knee 2/4 2/4 Ankle 2/4 2/4 Pathological Reflexes: absent. Gait: Patient's gait is normal and patient can tandem walk HEADACHE EXAM: - No tenderness to palpation during both active and passive ROM testing in the cervicogenic region - No tenderness to palpation in bilateral occipital notches - No tenderness to palpation during TMJ testing IMPRESSION: Komal Santoro is a 19 year old year old female with a significant past medical history of OCD (on Prozac and Buspar), IBS, acne who presents for further evaluation regarding headaches. On today's evaluation, the patient meets criteria for chronic migraine. - In the setting of a normal neurological physical examination and typical migraine features, there is no indication for additional neuroimaging at this time. - For symptomatic relief, on a preventative basis, patient was initiated on Topiramate 100 mg qHS. The patient was counseled to take this medication on a daily basis to reduce the severity and frequency of migraine. Keeping a strict log of headaches was encouraged and discussed with the patient. - As an abortive agent, the patient was initiated on Rizatriptan 10 mg PRN at the onset of the headache, which can be repeated if symptoms do not resolve in 2 hours. The patient was counseled not to exceed any abortive agents more than 10 days a month with the concern for medication overuse headache. - Follow-up in 3-6 months PRN. PLAN: Diagnosis: Chronic migraine Preventive: Topiramate 100 mg qHS Abortive: Rizatriptan 10 mg PRN HEADACHE MANAGEMENT: (You are the primary guardian of your health and headache. Keep track of all medications: This includes the reason for use, side effects and benefits.) MEDICATION TREATMENT: Medications to Start Taking topiramate (TOPAMAX) 25 mg tablet Take 1 tablet by mouth daily at bedtime for 7 days, THEN 2 tablets daily at bedtime for 7 days, THEN 3 tablets daily at bedtime for 7 days, THEN 4 tablets daily at bedtime. rizatriptan (MAXALT) 10 mg tablet Take 1 tablet by mouth as needed. AT ONSET OF HEADACHE. MAY REPEAT AFTER 2 HOURS. DO NOT EXCEED 30 MG PER DAY. Headache education was done. Discussed lifestyle modification including increased oral hydration, decreased caffeine, exercise and stress management. Discussed treatment options including preventive and acute medications, natural supplements, and infusion therapy. Discussed medication overuse headache and to limit use of acute treatments to no more than 2 days/week or 10 days/month. Discussed medication side effects, adverse reactions and drug interactions. Written educational materials and patient instructions outlining all of the above were given. Follow-up: 3 months Total time in minutes spent with patient: 60 minutes with more than 50% of the time spent in patient education/counselling/coordinating care with the patient and /or family. The above plan discussed with the patient. All questions answered. The patient verbalized understanding. Medical decision making was high complexity due to patient's multiple symptoms including Headache and pain, and counseling about diet, medications, and manager long term care implications. Marlen Thomas MD Staff Neurologist Headache AND Facial Pain Section [facility] Marlen Thomas MD 03/09/2025 11:42 AM Signed Acute Headache Treatment: (What to take as-needed for headache) 1) Rizatriptan 10 mg at earliest sign of migraine. May repeat once in 2 hours. Do not use more than 10 days per month. Headache Preventive Treatment (What to take on a daily basis to try to lessen frequency and/or intensity of headache): *Please keep in mind that it takes 4-6 weeks for the medication to start working well and 2-3 months at the appropriate dose before deciding if it will be useful or not. If it is not helping at all by this time, then we will discuss other medications to try. Supplements may take 3-6 months until you see full effect. 1) With the hopes of headache PREVENTION, we recommend the use of TOPIRAMATE (TOPAMAX) . Please take this medication on a daily basis with the hopes of reducing severity and frequency of headaches. Please start with Topiramate 25 mg (1 tablet) x 1 week Increase to Topiramate 50 mg (2 tablets) x 1 week Increase to Topiramate 75 mg (3 tablets) x 1 week Increase to Topiramate 100 mg (4 tablets) Continue Topiramate 100 mg daily until follow-up Continue Topiramate 100 mg as tolerated; if you experience any side-effects, please contact me. 2) Consider adding supplements: Magnesium 400-800 mg daily. Magnesium glycinate is a good choice for those with a sensitive stomach who have gastrointestinal side effects such as diarrhea with other forms of magnesium. It is anecdotally also helpful with anxiety and sleep. Magnesium threonate also has low risk of gastrointestinal side effects and anecdotally helpful with cognitive function and brain fog symptoms. Magnesium malate has low gastrointestinal side effects and is reportedly more energizing and anecdotally often helpful in fibromyalgia and chronic fatigue syndrome. Magnesium citrate is one of the most studied, popular, and well-absorbed forms of magnesium. It can also be mixed easily with liquids if you can?t take pills. However, it comes with a higher risk of diarrhea and gastrointestinal side effects, although this could be helpful for those with constipation. Magnesium oxide is also well studied, cheap, and often used for heartburn and indigestion. However, it is not well absorbed and can have some laxative side effects as well, so can also be helpful for constipation. Other supplements to consider would be Coenzyme Q10 200 mg (or 150 mg) twice daily (or Qunol brand 100 mg daily) +/- Riboflavin (Vitamin B2) 400 mg daily (or 200 mg twice daily). You can sometimes buy supplements cheaper (especially Coenzyme Q10) at www.[employer] or at [employer]. General Headache Instructions: 1) Maintain a headache diary; learn to identify and avoid triggers. 2) Limit use of acute treatments (ryeh-tmm-kxoannp medications, triptans, etc.) to no more than 2 days per week or 10 days per month to prevent medication overuse headache (rebound headache). 3) Follow a regular schedule (including weekends and holidays) for the next 6 weeks: A) Don't skip meals. B) 8 hours of sleep nightly. C) Avoid the following common headache triggers: -Caffeine (coffee, chocolate, tea, cola/pop/soda (7-up, Sprite, Mackenzie Mist, Joelle Janae, Mug/A+W Root Beer, Minute Maid [place], Slice are okay)) -Foods containing nitrates (deli meat, ham, romo, sausage, hot dogs) -Tyramine (aged cheese; can only have [place] Citizen cheese, cottage cheese, Velveeta and fresh mozarella (most pizza uses aged mozarella)) -MSG ([place]/ foods, Doritos, all flavored chips and Ramen noodles) -Nutrasweet and artificial sweeteners D) Minimize stress. E) Exercise 30 minutes per day. Being overweight is associated with a 5 times increased risk of chronic migraine. F) Keep well hydrated and drink 6-8 glasses of water per day. 4) Initiate non-pharmacologic measures at the earliest onset of your headache. A) Rest and quiet in a cool, dark environment. B) Relax and reduce stress. C) Cold compress to head (place a dry washcloth to forehead, cover with a blue freezer packet and use a headband to press the freezer packet across the forehead and temples). 5) Don't wait!! Take the maximum allowable dosage of prescribed medication at the very earliest sign of headache. 6) Compliance: Take prescribed medication regularly as directed and at the first sign of a headache. 7) Communicate: Call your physician when problems arise, especially if your headaches change, increase in frequency/severity, or become associated with neurological symptoms (weakness, numbness, slurred speech, etc.). 8) Headache/pain management therapies: Consider various complementary methods, including medication, behavioral therapy, psychological counselling, biofeedback, massage therapy, acupuncture, and other modalities. Such measures may reduce the need for medications. Counseling for pain management, where patients learn to function and ignore/minimize their pain, seems to work very well. 9) Recommend changing family's attention and focus away from patient's headaches. Instead, emphasize daily activities. If first question of day is 'How are your headaches/Do you have a headache today?', then patient will constantly think about headaches, thus making them worse. Goal is to re-direct attention away from headaches, toward daily activities and other distractions. Avoiding Medication Overuse Headache (Rebound Headache): Based on current research, the types of medications and their frequency of use which converts a previously episodic headache (particularly migraine) into a chronic daily headache (any headache occurring 15 or more days per month for at least 4 hours per day) are as follows: ---> Over the counter medications, NSAIDS and combination analgesics: -More than 2 days per week, or more than 10 days per month. -These include medications such as Acetaminophen (Tylenol), Naproxen (Aleve), Ibuprofen (Advil, Motrin), Acetaminophen/Caffeine (Excedrin), Acetaminophen/Dichloralphenazone/Isometheptene (Midrin), Aspirin (ok to continue if taking for medical reasons), cold remedies and sleep-promoting agents, among others. ---> Triptans: -More than 2 days per week, or more than 10 days per month. -These include Sumatriptan (Imitrex), Sumatriptan/Naproxen (Treximet), Rizatriptan (Maxalt), Almotriptan (Axert), Zolmitriptan (Zomig), Eletriptan (Relpax), Naratriptan (Amerge), Frovatriptan (Frova). ---> Opiates/Opioids (Narcotics): -8 days or more per month. Some research suggests that even infrequent use of these medications makes migraine specific medications such as triptans and NSAIDs less effective. -These include any narcotics such as Acetaminophen/Hydrocodone (Vicodin), Acetaminophen/Oxycodone (Percocet), Acetaminophen/Propoxyhene (Darvocet), Acetaminophen/Codeine (Tylenol #3, #4), Tramadol (Ultram), Acetaminophen/Tramadol (Ultracet), Oxycodone (OxyContin), Hydromorphone (Dilaudid), Fentanyl, Butorphanol (Stadol), Morphine or any form of a Morphine derivative. ---> Butalbital containing medications: -5 or more days per month. As you can see, these are the worst offenders. -These include Acetaminophen/Butalbital/Caffeine (Fioricet, Esgic) Acetaminophen/Butalbital/Caffeine/Codeine (Fioricet with Codeine), Aspirin/Butalbital/Caffeine (Fiorinal), Aspirin/Butalbital/Caffeine/Codeine (Fiorinal with Codeine). Vitamins and herbs that show potential for migraine prevention: Magnesium: Magnesium (250 mg twice a day or 500 mg at bed) has a relaxant effect on smooth muscles such as blood vessels. We often give intravenous magnesium to patients who come into the emergency department for migraine because it helps to break the migraine. Three trials found 40-90% average headache reduction when used as a preventative. Magnesium also demonstrated the benefit in menstrually related migraine. Magnesium is part of the messenger system in the serotonin cascade and it is a good muscle relaxant. It is also useful for constipation which can be a side effect of other medications used to treat migraine. Good sources include nuts, whole grains, and tomatoes. Coenzyme Q10: This is present in almost all cells in the body and is critical component for the conversion of energy. Recent studies have shown that a nutritional supplement of CoQ10 can reduce the frequency of migraine attacks by improving the energy production of cells as with riboflavin. Doses of 200 mg (or 150 mg) twice a day have been shown to be effective. Riboflavin (Vitamin B2): 200 mg twice a day (or 400 mg daily). This vitamin assists nerve cells in the production of ATP, a principal energy storing molecule. It is necessary for many chemical reactions in the body. There have been at least 3 clinical trials of riboflavin using 400 mg per day all of which suggested that migraine frequency can be decreased. All 3 trials showed significant improvement in over half of migraine sufferers. The supplement is found in bread, cereal, milk, meat, and poultry. Most Americans get more riboflavin than the recommended daily allowance, however riboflavin deficiency is not necessary for the supplements to help prevent headache. Feverfew: Feverfew is a common garden herb [place] and popular in [place] as a treatment for disorders typically controlled by aspirin. The mechanism of action is unknown but is believed to be related to a chemical called parthenolide which helps the body use serotonin more effectively. Serotonin helps prevent migraine and assists with resolution when it occurs. Parthenolide also inhibits the release of histamine which is linked to pain and inflammation. Consistency of active ingredients in different products can be a problem. Some formulations don't have the active ingredient (parthenolide) that prevents migraine. A parthenolide content of 0.2% is generally recommended. Typical dosage is one capsule 3 times a day. Butterbur: This is an extract derived from the petisides hybridus root, which has been used for medicinal purposes since ancient times. A recent study found that 75 mg daily given over 4 months reduced headache frequency by 50% or more in over two thirds of the 245 patient studied. The 50 mg dose showed no significant effect. Side effects were infrequent, and the most common and unusual includes burping/belching. Raw butterbur root contains toxic chemicals that must be filtered out during the manufacturing process. To be sure you are choosing a safe product. Look for a formulation that does not contain pyrrolizidine alkaloids which are toxic to the liver. Melatonin: Increasing evidence shows correlation between melatonin secretion and headache conditions. Melatonin supplementation has shown decreased headache intensity and duration. It is widely used as a sleep aid. Sleep is nature's way of dealing with migraine. A dose of 3 mg is recommended to start for headaches including cluster headache. Higher doses up to 15 mg has been reviewed for use in Cluster headache and have been used. The rationale behind using melatonin for cluster is that many theories regarding the cause of Cluster headache center around the disruption of the normal circadian rhythm in the brain. This helps restore the normal circadian rhythm. It should be taken at least 2 hours before bedtime. Joelle: Joelle has a small amount of anti-histamine and anti-inflammatory action which may help headache. It is primarily used for nausea and may aid in the absorption of other medications. HEADACHE EXPECTATIONS: There are many types of headaches, and only a rare few in which complete relief can be expected. In general, there is no cure for headache, especially migraine based headaches. There is nothing available that completely prevents headaches from occurring, breaking through, or having periodic flare-ups and fluctuations. Regardless of what you are using on a daily basis for prevention, episodic headaches should still be expected, and periods where frequency may escalate and fluctuate are unavoidable. There is no quick fix for most headaches. Furthermore, the longer you have had high frequency headaches (such as chronic daily headache), the longer it will likely take to expect any improvement. In fact, some people will never improve, regardless of how many medications or other treatments we try. Our treatment strategy is to evaluate for possible causes of your headache, although testing is usually always normal, even in cases of daily continuous headaches for years. Most types of headache such as migraine are electrical brain disorders (similar to how epilepsy is an electrical brain disorders). Therefore, there is no testing that will reveal this dysfunctional electrical circuitry such on MRI, or other testing. We try to find a medication that may help lessen the frequency and/or severity of your headaches. The goal is not to completely stop them from happening, although if that happens, great! Different people respond to different medications, and some people just don't respond to anything, so it's usually a matter of trying different options. We can not predict if or when exactly you will respond to a treatment that we provide. Preventive headache medications take 4-6 weeks to start working, and 2-3 months to see full effect, assuming you reach an effective dose. Therefore, calling or messaging frequently because you have a headache flare prior to the 3 month evita is unlikely to change anything, and unfortunately there is nothing available that will expedite this, so please try to avoid this. Our recommendation will generally be to give it adequate time first. If you are unable to wait it out for medications to work, we can also try IV infusions for some temporary relief. Or, we offer our 3 week outpatient chronic daily headache program (IMATCH) to help you better learn how to function and deal with chronic headache issues. In general, the best that preventive medications or other treatments (including Botox) are able to offer in migraine management (variable in other headache types) is a 50% improvement in frequency and/or severity of headache. That is our goal, and any additional benefit is considered a bonus. Some people do significantly better than this, others do not get close to this. Therefore, if your headaches are not improving by at least 3 months on your preventive strategy, contact us and we can discuss further adjustments. Keep in mind that complete headache cure is not a realistic expectation. MYCHART, PHONE CALLS, TESTING RESULTS: Please understand that we rely heavily and work closely with our nursing team to assist us in managing your telephone calls, test results, and refills. Due to the volume of daily phone calls, messages, and schedules, it is impossible for us to personally call patients back through the day. We do receive your messages, which are very important to us, and respond most often through our nursing team to help relay our message and response back to you. The main way of communication is by [employer] rather than phone lines, so if you have not signed up, please do so. [employer] is also the way that you can review your labs and testing. We are not able to contact everyone to tell them results are normal. If you do not hear back from us regarding testing you have had, it should be considered normal or within normal range. If you have any questions about the results, you are free to message us. MyChart is meant for simple questions regarding medications, possible side effects, or other simple straight forward questions in limited sentences, rather than multiple paragraphs of discussion. [employer] is not meant for, safe, or efficient for these complex questions, extensive questions, extensive medication adjustments, complex new symptoms or concerns. These issues beyond simple questions require a follow up visit with myself, one of our physician assistants, nurse practitioners, or a Virtual Visit via computer or smart phone, as detailed further down. REFILLS: Please pay attention to when your refills will need to be renewed. Due to the volume of phone calls daily, this could potentially take a few days, although we certainly try to honor your refill requests as soon as we can. You should call at least 1 week in advance of needing a refill to ensure you do not run out of medication. Keep in mind that refill requests on Fridays may not be filled until the following week. BOTOX: If you are receiving Botox treatments, please check with your insurance company before and following each treatment appointment to ensure that you still have pre-approved coverage for your next Botox appointment in 3 months. If your coverage has run out, and a new prior authorization is required to continue Botox treatment, please call our office and let us know so that we can file the paperwork. Telemedicine is the newest ?virtual visit? that we are now offering to allow you to have a [id number] conversation with your doctor for 15 minutes (although this can extend further as needed), without the need for driving to our clinic, paying for parking, paying copays, paying for travel, stopping over for meals, etc. You will need a computer or smartphone (with a built-in camera), should you wish to avail of this convenient alternative. If you are interested in the telemedicine visit, please let me know and we will facilitate that visit. I have included more detailed information below on how the virtual visit works. We look forward to serving your needs and answering your questions! REASON FOR A VIRTUAL ONLINE APPOINTMENT In order to provide you with the best care possible, we have recently begun using a technology to connect patients, providers, and family members through a ?Skype?-like connection for live audio and video communication. We are now using this as a way for patients to have a visit with a provider without the added costs of having to travel to our facility. This service, [facility], is easily accessible through your mobile device or a desktop/laptop with a browser and internet connection. HOW DO I GET STARTED? ON A DESKTOP OR LAPTOP COMPUTER WITH A WEBCAM CONNECTED: 1. Go to the URL: [email or web address] 2. Click on Sign Up and Create a patient account for yourself. 3. Please also follow the links to ?Test My Computer?. 4. Follow the steps suggested, testing your Internet Speed, Webcam, Microphone, Speaker, and your video software. 5. Please make sure your video software is up-to-date. This is a safe, [facility] approved download, and will not harm your computer. ON AN IPHONE, IPAD, OR ANDROID DEVICE: 1. Open up the [employer] or [employer] and search [facility]. 2. Download and Install the Application. 3. Tap on Sign Up and create a patient account for yourself. 4. Please use an e-mail address that you frequently check, as you will receive an e-mail appointment from [facility]. Find our user guide, here: [email or web address] Important: Don?t forget your password you choose during setup. For your personal records: Your E-mail Address Here: Your Password Here: YOUR ONLINE VIRTUAL VISIT 1. Once the visit is scheduled, you should plan to begin your visit at least 15 minutes prior to the start of your visit. 2. You can begin by opening the email you received to schedule this visit, click on ?Start Visit,? agree to the Terms of Use, and wait for your visit to start! 3. Agree to the Terms of Use, and wait for your visit to start! 4. When you join the virtual visit you will be connected to the provider. Please call [phone] prior to your visit if you have any questions regarding technology! Allergies As of Date: 03/09/2025 (Not on File) Date Reviewed: 03/09/2025 Reviewed by: Uzma Mejia RN - Fully Assessed Reason for Visit: New Patient [172] Migraine [4107] Primary Visit Diagnosis:Chronic migraine without aura, intractable, without status migrainosus [G43.719] Order(s):topiramate (TOPAMAX) 25 mg tabletTake 1 tablet by mouth daily at bedtime for 7 days, THEN 2 tablets daily at bedtime for 7 days, THEN 3 tablets daily at bedtime for 7 days, THEN 4 tablets daily at bedtime.Disp: 162 tabletRfl: 2 rizatriptan (MAXALT) 10 mg tabletTake 1 tablet by mouth as needed. AT ONSET OF HEADACHE. MAY REPEAT AFTER 2 HOURS. DO NOT EXCEED 30 MG PER DAY.Disp: 10 tabletRfl: 2 Prescriptions as of 03/20/2025 - busPIRone (BUSPAR) 10 mg tablet Take 1 tablet by mouth once daily. - Clindamycin Phosphate (CLEOCIN T) 1 % lotion Apply to affected area two times a day. - FLUoxetine (PROZAC) 20 mg capsule Take 1 capsule by mouth once daily. - CAPMIST DM 60-15-400 mg tab Take 1 tablet by mouth every 4 hours as needed. - LINZESS 72 mcg capsule Take 1 capsule by mouth once daily. - omeprazole (PRILOSEC) 20 mg capsule Take 1 capsule by mouth once daily. - spironolactone (ALDACTONE) 50 mg tablet Take 50 mg by mouth once daily. - Sulfacetamide Sodium, Acne, 10 % susp apply a thin layer to the face DAILY FOR 30 DAYS - topiramate (TOPAMAX) 25 mg tablet Take 1 tablet by mouth daily at bedtime for 7 days, THEN 2 tablets daily at bedtime for 7 days, THEN 3 tablets daily at bedtime for 7 days, THEN 4 tablets daily at bedtime. - rizatriptan (MAXALT) 10 mg tablet Take 1 tablet by mouth as needed. AT ONSET OF HEADACHE. MAY REPEAT AFTER 2 HOURS. DO NOT EXCEED 30 MG PER DAY. Problem List As Of Date: 03/09/2025 (None) Other instructions from your clinician: Acute Headache Treatment: (What to take as-needed for headache) 1) Rizatriptan 10 mg at earliest sign of migraine. May repeat once in 2 hours. Do not use more than 10 days per month. Headache Preventive Treatment (What to take on a daily basis to try to lessen frequency and/or intensity of headache): *Please keep in mind that it takes 4-6 weeks for the medication to start working well and 2-3 months at the appropriate dose before deciding if it will be useful or not. If it is not helping at all by this time, then we will discuss other medications to try. Supplements may take 3-6 months until you see full effect. 1) With the hopes of headache PREVENTION, we recommend the use of TOPIRAMATE (TOPAMAX) . Please take this medication on a daily basis with the hopes of reducing severity and frequency of headaches. Please start with Topiramate 25 mg (1 tablet) x 1 week Increase to Topiramate 50 mg (2 tablets) x 1 week Increase to Topiramate 75 mg (3 tablets) x 1 week Increase to Topiramate 100 mg (4 tablets) Continue Topiramate 100 mg daily until follow-up Continue Topiramate 100 mg as tolerated; if you experience any side-effects, please contact me. 2) Consider adding supplements: Magnesium 400-800 mg daily. Magnesium glycinate is a good choice for those with a sensitive stomach who have gastrointestinal side effects such as diarrhea with other forms of magnesium. It is anecdotally also helpful with anxiety and sleep. Magnesium threonate also has low risk of gastrointestinal side effects and anecdotally helpful with cognitive function and brain fog symptoms. Magnesium malate has low gastrointestinal side effects and is reportedly more energizing and anecdotally often helpful in fibromyalgia and chronic fatigue syndrome. Magnesium citrate is one of the most studied, popular, and well-absorbed forms of magnesium. It can also be mixed easily with liquids if you can?t take pills. However, it comes with a higher risk of diarrhea and gastrointestinal side effects, although this could be helpful for those with constipation. Magnesium oxide is also well studied, cheap, and often used for heartburn and indigestion. However, it is not well absorbed and can have some laxative side effects as well, so can also be helpful for constipation. Other supplements to consider would be Coenzyme Q10 200 mg (or 150 mg) twice daily (or Qunol brand 100 mg daily) +/- Riboflavin (Vitamin B2) 400 mg daily (or 200 mg twice daily). You can sometimes buy supplements cheaper (especially Coenzyme Q10) at www.[employer] or at [employer]. General Headache Instructions: 1) Maintain a headache diary; learn to identify and avoid triggers. 2) Limit use of acute treatments (hivb-wuv-pfydozo medications, triptans, etc.) to no more than 2 days per week or 10 days per month to prevent medication overuse headache (rebound headache). 3) Follow a regular schedule (including weekends and holidays) for the next 6 weeks: A) Don't skip meals. B) 8 hours of sleep nightly. C) Avoid the following common headache triggers: -Caffeine (coffee, chocolate, tea, cola/pop/soda (7-up, Sprite, Mackenzie Mist, Joelle Janae, Mug/A+W Root Beer, Minute Maid [place], Slice are okay)) -Foods containing nitrates (deli meat, ham, romo, sausage, hot dogs) -Tyramine (aged cheese; can only have [place] Citizen cheese, cottage cheese, Velveeta and fresh mozarella (most pizza uses aged mozarella)) -MSG ([place]/ foods, Doritos, all flavored chips and Ramen noodles) -Nutrasweet and artificial sweeteners D) Minimize stress. E) Exercise 30 minutes per day. Being overweight is associated with a 5 times increased risk of chronic migraine. F) Keep well hydrated and drink 6-8 glasses of water per day. 4) Initiate non-pharmacologic measures at the earliest onset of your headache. A) Rest and quiet in a cool, dark environment. B) Relax and reduce stress. C) Cold compress to head (place a dry washcloth to forehead, cover with a blue freezer packet and use a headband to press the freezer packet across the forehead and temples). 5) Don't wait!! Take the maximum allowable dosage of prescribed medication at the very earliest sign of headache. 6) Compliance: Take prescribed medication regularly as directed and at the first sign of a headache. 7) Communicate: Call your physician when problems arise, especially if your headaches change, increase in frequency/severity, or become associated with neurological symptoms (weakness, numbness, slurred speech, etc.). 8) Headache/pain management therapies: Consider various complementary methods, including medication, behavioral therapy, psychological counselling, biofeedback, massage therapy, acupuncture, and other modalities. Such measures may reduce the need for medications. Counseling for pain management, where patients learn to function and ignore/minimize their pain, seems to work very well. 9) Recommend changing family's attention and focus away from patient's headaches. Instead, emphasize daily activities. If first question of day is 'How are your headaches/Do you have a headache today?', then patient will constantly think about headaches, thus making them worse. Goal is to re-direct attention away from headaches, toward daily activities and other distractions. Avoiding Medication Overuse Headache (Rebound Headache): Based on current research, the types of medications and their frequency of use which converts a previously episodic headache (particularly migraine) into a chronic daily headache (any headache occurring 15 or more days per month for at least 4 hours per day) are as follows: ---> Over the counter medications, NSAIDS and combination analgesics: -More than 2 days per week, or more than 10 days per month. -These include medications such as Acetaminophen (Tylenol), Naproxen (Aleve), Ibuprofen (Advil, Motrin), Acetaminophen/Caffeine (Excedrin), Acetaminophen/Dichloralphenazone/Isometheptene (Midrin), Aspirin (ok to continue if taking for medical reasons), cold remedies and sleep-promoting agents, among others. ---> Triptans: -More than 2 days per week, or more than 10 days per month. -These include Sumatriptan (Imitrex), Sumatriptan/Naproxen (Treximet), Rizatriptan (Maxalt), Almotriptan (Axert), Zolmitriptan (Zomig), Eletriptan (Relpax), Naratriptan (Amerge), Frovatriptan (Frova). ---> Opiates/Opioids (Narcotics): -8 days or more per month. Some research suggests that even infrequent use of these medications makes migraine specific medications such as triptans and NSAIDs less effective. -These include any narcotics such as Acetaminophen/Hydrocodone (Vicodin), Acetaminophen/Oxycodone (Percocet), Acetaminophen/Propoxyhene (Darvocet), Acetaminophen/Codeine (Tylenol #3, #4), Tramadol (Ultram), Acetaminophen/Tramadol (Ultracet), Oxycodone (OxyContin), Hydromorphone (Dilaudid), Fentanyl, Butorphanol (Stadol), Morphine or any form of a Morphine derivative. ---> Butalbital containing medications: -5 or more days per month. As you can see, these are the worst offenders. -These include Acetaminophen/Butalbital/Caffeine (Fioricet, Esgic) Acetaminophen/Butalbital/Caffeine/Codeine (Fioricet with Codeine), Aspirin/Butalbital/Caffeine (Fiorinal), Aspirin/Butalbital/Caffeine/Codeine (Fiorinal with Codeine). Vitamins and herbs that show potential for migraine prevention: Magnesium: Magnesium (250 mg twice a day or 500 mg at bed) has a relaxant effect on smooth muscles such as blood vessels. We often give intravenous magnesium to patients who come into the emergency department for migraine because it helps to break the migraine. Three trials found 40-90% average headache reduction when used as a preventative. Magnesium also demonstrated the benefit in menstrually related migraine. Magnesium is part of the messenger system in the serotonin cascade and it is a good muscle relaxant. It is also useful for constipation which can be a side effect of other medications used to treat migraine. Good sources include nuts, whole grains, and tomatoes. Coenzyme Q10: This is present in almost all cells in the body and is critical component for the conversion of energy. Recent studies have shown that a nutritional supplement of CoQ10 can reduce the frequency of migraine attacks by improving the energy production of cells as with riboflavin. Doses of 200 mg (or 150 mg) twice a day have been shown to be effective. Riboflavin (Vitamin B2): 200 mg twice a day (or 400 mg daily). This vitamin assists nerve cells in the production of ATP, a principal energy storing molecule. It is necessary for many chemical reactions in the body. There have been at least 3 clinical trials of riboflavin using 400 mg per day all of which suggested that migraine frequency can be decreased. All 3 trials showed significant improvement in over half of migraine sufferers. The supplement is found in bread, cereal, milk, meat, and poultry. Most Americans get more riboflavin than the recommended daily allowance, however riboflavin deficiency is not necessary for the supplements to help prevent headache. Feverfew: Feverfew is a common garden herb [place] and popular in [place] as a treatment for disorders typically controlled by aspirin. The mechanism of action is unknown but is believed to be related to a chemical called parthenolide which helps the body use serotonin more effectively. Serotonin helps prevent migraine and assists with resolution when it occurs. Parthenolide also inhibits the release of histamine which is linked to pain and inflammation. Consistency of active ingredients in different products can be a problem. Some formulations don't have the active ingredient (parthenolide) that prevents migraine. A parthenolide content of 0.2% is generally recommended. Typical dosage is one capsule 3 times a day. Butterbur: This is an extract derived from the petisides hybridus root, which has been used for medicinal purposes since ancient times. A recent study found that 75 mg daily given over 4 months reduced headache frequency by 50% or more in over two thirds of the 245 patient studied. The 50 mg dose showed no significant effect. Side effects were infrequent, and the most common and unusual includes burping/belching. Raw butterbur root contains toxic chemicals that must be filtered out during the manufacturing process. To be sure you are choosing a safe product. Look for a formulation that does not contain pyrrolizidine alkaloids which are toxic to the liver. Melatonin: Increasing evidence shows correlation between melatonin secretion and headache conditions. Melatonin supplementation has shown decreased headache intensity and duration. It is widely used as a sleep aid. Sleep is nature's way of dealing with migraine. A dose of 3 mg is recommended to start for headaches including cluster headache. Higher doses up to 15 mg has been reviewed for use in Cluster headache and have been used. The rationale behind using melatonin for cluster is that many theories regarding the cause of Cluster headache center around the disruption of the normal circadian rhythm in the brain. This helps restore the normal circadian rhythm. It should be taken at least 2 hours before bedtime. Joelle: Joelle has a small amount of anti-histamine and anti-inflammatory action which may help headache. It is primarily used for nausea and may aid in the absorption of other medications. HEADACHE EXPECTATIONS: There are many types of headaches, and only a rare few in which complete relief can be expected. In general, there is no cure for headache, especially migraine based headaches. There is nothing available that completely prevents headaches from occurring, breaking through, or having periodic flare-ups and fluctuations. Regardless of what you are using on a daily basis for prevention, episodic headaches should still be expected, and periods where frequency may escalate and fluctuate are unavoidable. There is no quick fix for most headaches. Furthermore, the longer you have had high frequency headaches (such as chronic daily headache), the longer it will likely take to expect any improvement. In fact, some people will never improve, regardless of how many medications or other treatments we try. Our treatment strategy is to evaluate for possible causes of your headache, although testing is usually always normal, even in cases of daily continuous headaches for years. Most types of headache such as migraine are electrical brain disorders (similar to how epilepsy is an electrical brain disorders). Therefore, there is no testing that will reveal this dysfunctional electrical circuitry such on MRI, or other testing. We try to find a medication that may help lessen the frequency and/or severity of your headaches. The goal is not to completely stop them from happening, although if that happens, great! Different people respond to different medications, and some people just don't respond to anything, so it's usually a matter of trying different options. We can not predict if or when exactly you will respond to a treatment that we provide. Preventive headache medications take 4-6 weeks to start working, and 2-3 months to see full effect, assuming you reach an effective dose. Therefore, calling or messaging frequently because you have a headache flare prior to the 3 month evita is unlikely to change anything, and unfortunately there is nothing available that will expedite this, so please try to avoid this. Our recommendation will generally be to give it adequate time first. If you are unable to wait it out for medications to work, we can also try IV infusions for some temporary relief. Or, we offer our 3 week outpatient chronic daily headache program (IMATCH) to help you better learn how to function and deal with chronic headache issues. In general, the best that preventive medications or other treatments (including Botox) are able to offer in migraine management (variable in other headache types) is a 50% improvement in frequency and/or severity of headache. That is our goal, and any additional benefit is considered a bonus. Some people do significantly better than this, others do not get close to this. Therefore, if your headaches are not improving by at least 3 months on your preventive strategy, contact us and we can discuss further adjustments. Keep in mind that complete headache cure is not a realistic expectation. MYCHART, PHONE CALLS, TESTING RESULTS: Please understand that we rely heavily and work closely with our nursing team to assist us in managing your telephone calls, test results, and refills. Due to the volume of daily phone calls, messages, and schedules, it is impossible for us to personally call patients back through the day. We do receive your messages, which are very important to us, and respond most often through our nursing team to help relay our message and response back to you. The main way of communication is by MyChart rather than phone lines, so if you have not signed up, please do so. MyChart is also the way that you can review your labs and testing. We are not able to contact everyone to tell them results are normal. If you do not hear back from us regarding testing you have had, it should be considered normal or within normal range. If you have any questions about the results, you are free to message us. MyChart is meant for simple questions regarding medications, possible side effects, or other simple straight forward questions in limited sentences, rather than multiple paragraphs of discussion. MyChart is not meant for, safe, or efficient for these complex questions, extensive questions, extensive medication adjustments, complex new symptoms or concerns. These issues beyond simple questions require a follow up visit with myself, one of our physician assistants, nurse practitioners, or a Virtual Visit via computer or smart phone, as detailed further down. REFILLS: Please pay attention to when your refills will need to be renewed. Due to the volume of phone calls daily, this could potentially take a few days, although we certainly try to honor your refill requests as soon as we can. You should call at least 1 week in advance of needing a refill to ensure you do not run out of medication. Keep in mind that refill requests on Fridays may not be filled until the following week. BOTOX: If you are receiving Botox treatments, please check with your insurance company before and following each treatment appointment to ensure that you still have pre-approved coverage for your next Botox appointment in 3 months. If your coverage has run out, and a new prior authorization is required to continue Botox treatment, please call our office and let us know so that we can file the paperwork. Telemedicine is the newest ?virtual visit? that we are now offering to allow you to have a gjwv-iu-vbaj conversation with your doctor for 15 minutes (although this can extend further as needed), without the need for driving to our clinic, paying for parking, paying copays, paying for travel, stopping over for meals, etc. You will need a computer or smartphone (with a built-in camera), should you wish to avail of this convenient alternative. If you are interested in the telemedicine visit, please let me know and we will facilitate that visit. I have included more detailed information below on how the virtual visit works. We look forward to serving your needs and answering your questions! REASON FOR A VIRTUAL ONLINE APPOINTMENT In order to provide you with the best care possible, we have recently begun using a technology to connect patients, providers, and family members through a ?Skype?-like connection for live audio and video communication. We are now using this as a way for patients to have a visit with a provider without the added costs of having to travel to our facility. This service, [facility], is easily accessible through your mobile device or a desktop/laptop with a browser and internet connection. HOW DO I GET STARTED? ON A DESKTOP OR LAPTOP COMPUTER WITH A WEBCAM CONNECTED: 1. Go to the URL: [email or web address] 2. Click on Sign Up and Create a patient account for yourself. 3. Please also follow the links to ?Test My Computer?. 4. Follow the steps suggested, testing your Internet Speed, Webcam, Microphone, Speaker, and your video software. 5. Please make sure your video software is up-to-date. This is a safe, [facility] approved download, and will not harm your computer. ON AN IPHONE, IPAD, OR ANDROID DEVICE: 1. Open up the Arie Store or Changers and search [facility]. 2. Download and Install the Application. 3. Tap on Sign Up and create a patient account for yourself. 4. Please use an e-mail address that you frequently check, as you will receive an e-mail appointment from [facility] [place] [facility]. Find our user guide, here: [email or web address] Important: Don?t forget your password you choose during setup. For your personal records: Your E-mail Address Here: Your Password Here: YOUR ONLINE VIRTUAL VISIT 1. Once the visit is scheduled, you should plan to begin your visit at least 15 minutes prior to the start of your visit. 2. You can begin by opening the email you received to schedule this visit, click on ?Start Visit,? agree to the Terms of Use, and wait for your visit to start! 3. Agree to the Terms of Use, and wait for your visit to start! 4. When you join the virtual visit you will be connected to the provider. Please call [phone] prior to your visit if you have any questions regarding technology! Prescriptions ordered this encounter Disp Refills Start End TOPIRAMATE 25 MG TABLET 162 * 2 03/09/2025 04/29/2025 Route: ORAL Sig: Take 1 tablet by mouth daily at bedtime for 7 days, THEN 2 tablets daily at bedtime for 7 days, THEN 3 tablets daily at bedtime for 7 days, THEN 4 tablets daily at bedtime. RIZATRIPTAN 10 MG TABLET 10 t* 2 03/09/2025 Route: ORAL Sig: Take 1 tablet by mouth as needed. AT ONSET OF HEADACHE. MAY REPEAT AFTER 2 HOURS. DO NOT EXCEED 30 MG PER DAY. Encounter Status:Closed by MARLEN THOMAS on 03/20/25 BI US BREAST COMPLETE LEFT Observed: 05/2025 12:31 PM Status: F Source: [facility] This is a summary report. Th e complete report is available in the patient's medical record. If you cannot access the medical record, please contact the sending organization for a detailed fax or copy. Examination: BI US BREAST COMPLETE LEFT Reason for Study: breast pain Comparison: None Technique: Complete left breast ultrasound study was performed to include all 4 quadrants, subareolar and axillary regions. Additional images were obtained at the 3 o'clock position in the area of clinically palpable lump and pain. Findings: At the 3 o'clock position there is an area of intermediate echogenicity measuring approximately 3.0 x 2.1 x 0.4 cm which is nonspecific. The finding may represent breast lobule, focus of fat or possible lipoma. No obvious internal vascularity or posterior shadowing. Other possibility would be unlikely. No obvious solid vascular mass to suggest neoplasm. No obvious abnormal calcifications or vascularity. No obvious ductal dilatation. Dense fibroglandular tissue is noted. IMPRESSION: Impression: Left breast ultrasound study fails to convincingly demonstrate evidence of neoplasm. Finding at the 3 o'clock position in the area of clinically palpable lump and pain which is likely benign, possibly representing breast lobule, focus of fat or lipoma. Other possibly would be unlikely. Follow-up left breast ultrasound study directed to the 3:00 region in 6 months is recommended to assess stability. BI-RADS 3 ELECTRONICALLY SIGNED BY: Toni Rosenthal M.D. COMPLETE BLOOD COUNT AUTO DIFF Collected: 01/12/2025 9:44 AM Status: F Source: [facility] TYPE CODE TESTS RESULT OUT OF RANGE REFERENCE UNITS LAB WBC White Blood Count 4.9 Normal 3.8-11.6 10*3/uL LAB UNWBC Uncorrected WBC 4.9 Normal 3.8-11.6 10*3/uL LAB RBC Red Blood Count 4.11 Normal 3.60-5.00 10*6/u L LAB HGB Hemoglobin 12.2 Normal 11.8-15.4 g/dL LAB HCT Hematocrit 35.2 Normal 34.0-46.4 % LAB MCV Mean Corpuscular Volume 85.7 Normal 80-100 fL LAB MCH Mean Corpuscular Hemoglobin 29.8 Normal 24.7-34.3 pg LAB MCHC Mean Corpuscular HGB Conc 34.8 Normal 32.0-35.0 g/dL LAB RDW Red Cell Distribution Width 12.6 Normal 11.9-15.3 % LAB PLT Platelet Count 223 Normal 150-450 10*3/uL LAB MPV Mean Platelet Volume 8.9 Normal 6.3-10.7 fL LAB NE% Neutrophils % (Auto) 61.6 . % LAB LY% Lymphocytes % (Auto) 26.3 . % LAB MO% Monocytes % (Auto) 8.3 . % LAB EO% Eosinophils % (Auto) 3.1 . % LAB BA% Basophils % (Auto) 0.7 . % LAB NRBC% NRBC% 0.2 Normal 0-0.5 /100{WBC} LAB NE# Neutrophils # (Auto) 3.0 Normal 1.8-7.7 10*3/uL LAB LY# Lymphocytes # (Auto) 1.3 Normal 1.00-4.8 10*3/uL LAB MO# Monocytes # (Auto) 0.4 Normal 0.0-0.8 10*3/uL LAB EO# Eosinophils # (Auto) 0.2 Normal 0.0-0.45 10*3/uL LAB BA# Basophils # (Auto) 0.0 Normal 0.0-0.2 10*3/uL Result Comment: PERFORMED BY : [place] [address] PATHOLOGIST SIGN OUT CLERK ESDRAS MCFARLAND M.D. Performed By: #### CMP, CBC #### [address] COMPREHENSIVE METABOLIC PANEL Collected: 01/12/2025 9 :44 AM Status: F Source: [facility] TYPE CODE TESTS RESULT OUT OF RANGE REFERENCE UNITS LAB GLU Glucose 80 Normal 70-100 mg/dL Result Comment: Random Gluco se Reference Range is dependent on time and content of last meal. Glucose of more than 200 mg/dL in a nonstressed, ambulatory subject supports the diagnosis of Diabetes Mellitus. ADA recommended reference range LAB BUN Blood Urea Nitrogen 7 Normal 7-25 mg/d L LAB CREATT Creatinine 0.81 Normal 0.60-1.20 mg/dL LAB GFReNR Estimated GFR >60.0 mL/Min LAB NA Sodium 139 Normal 136-145 mmol/L LAB K Potassium 3.6 Normal 3.5-5.1 mmol/L LAB CL Chloride 104 Normal 98-107 mmol/L LAB CO2 Carbon Dioxide 27.5 Normal 21.0-31.0 mmol/L LAB GAP Anion Gap 11.1 Normal 6.0-15.0 meq/L LAB CA Calcium 8.6 Normal 8.6-10.3 mg/dL LAB TP Total Protein 6.5 Normal 6.4-8.9 g/dL LAB ALB Albumin Level 4.2 Normal 3.5-5.7 g/dL LAB GLOB Globulin 2.3 g/dL LAB AGRATIO Albumin/Globulin Ratio 1.8 LAB BILIT Bilirubin,Total 1.5 High 0.3-1.0 mg/dL Result Comment: Samples from patients who have taken Naproxen have shown spurious elevation in Total Bilirubin levels. A metabolite of Naproxen, O-desmethylnaproxen, has been shown to interfere with the Baltazar-Milton method for measuring Total Bilirubin. LAB AST Aspartate Amino Transferase 13 Normal 13-39 U/L LAB ALT Alanine Aminotransferase 9 Normal 7-52 U/L LAB ALP Alkaline Phosphatase 46 Normal 34-104 U/L LAB CRCLPHA Creatinine Clr C alc Pharmacy 99.69 Result Comment: PERFORMED BY : [place] [address] PATHOLOGIST SIGN OUT CLERK ESDRAS MCFARLAND M.D. Performed By: #### CMP, CBC #### [facility] [address] [place] [address] L Observed: 01/12/2025 9:05 AM Status: Walter Source: [facility] ----- ------- Specimen: [id number] Received: 01/12/25 Status: MINA Narvaez Num: [id number] Spec Type: Surgical Subm Dr: Mario Crowder MD Tissues: A Small Intestine - Biopsy/Polyp (SMALL BOWEL BX) Procedures: HE/2, Gross/Micro L4 ----- ------- Age/ Patient Sex Location Account Attending Physician ----- ------- Komal Santoro 19/F [id number] Mario Crowder MD ----- ------- SPEC NUM: [id number] RECD: 01/12/25 STATUS: MINA NARVAEZ NUM: [id number] JULEE: 01/12/25 [facility] DR: Mario Crowder MD ENTERED: 01/12/[address] [facility] [address]: SANIYA TYPE: Surgical DEPT: S ORDERED: HE/2, Gross/Micro L4 ORDERED: HE/2, Gross/Micro L4 Pathological Diagnosis A. Small intestine (mucosal biopsies): Within normal limits No features of celiac disease or dysplasia seen Clinical Information Abdominal pain bloating constipation, rule out celiac Gross Description Part A is received in formalin labeled with the patients name, date of , and Sm bowel BX are 2 qureshi-aburto, focally erythematous, friable, 0.2 and 0.3 cm in greatest dimension tissue bits. The specimen is entirely submitted in a single cassette. (1, ns, [id number]) ITZEL ----- ------- ----- ------- Specimen: [id number] Received: 01/12/25 Status: MINA Narvaez Num: [id number] Spec Type: Surgical Subm Dr: Mario Crowder MD Tissues: A Small Intestine - Biopsy/Polyp (SMALL BOWEL BX) Procedures: HE/2, Gross/Micro L4 ----- ------- Patient: Komal Santoro [id number] (Continued) ----- ------- Signed (signature on file) Jose Roberto Koch Jr., MD 01/15/25 1359 HCG,URINE Collected: 01/12/2025 8:24 AM Status: F Source: [facility] TYPE CODE TESTS RESULT OUT OF RANGE REFERENCE UNITS LAB UHCGQ HCG Qualitative,U rine Negative Result Comment: PERFORMED BY : [place] [address] PATHOLOGIST SIGN OUT CLERK ESDRAS MCFARLAND M.D. Performed By: #### UHCG #### [address] ALLERGIES DATE TYPE / CODE NAME / CODE REACTION SEVERITY SOURCE 01/22/2025 Drug Allergy/[id number] (SNOMED CT) No Known Allergies/[id number](RXNORM) Unknown [facility] ENCOUNTERS ADMIT/DISCHARGE ACCOUNT NUMBER ADMITTING ENCOUNTER CLASS LOCATION SOURCE 07/09/2025/07/09/20 [id number] Ambulatory Building:NOM S [facility] 06/29/2025/06/29/20 25 [id number] [facility] 06/07/2025/06/07/20 25 [id number] Ambulatory Building:NOM S [facility] 04/06/2025 [id number] [facility]CABR [facility] 04/06/2025/04/06/20 25 [id number] [facility]JAMEEA [facility] 03/09/2025/03/09/20 25 [id number] [facility] 03/07/2025/03/07/20 25 [id number] Ambulatory Building:NOM SSWSUS [facility] 03/07/2025/03/07/20 25 [id number] Ambulatory Building:NOM S SWS OB [facility] 01/12/2025/01/13/20 25 [id number] Mario Crowder [facility] 01/09/2025/01/10/20 25 [id number] Ambulatory Building:NOM S [facility] 10/10/2024/10/10/20 24 [id number] Ambulatory Building:NOM S [facility] 08/10/2024/08/10/20 24 [id number] Ambulatory Building:NOM S [facility] PAYERS ENCOUNTER GUARANTOR PAYER SUBSCRIBER SOURCE 07/09/2025 KOMAL HARPREETOB: [place] [address]Laa: (HP) Primary Insurance:BCBSPolicy Number: [id number] e Date:2022-11-01 KOMAL AKOSUARDOB: [id number] [place] [address] [facility] 07/09/2025 Secondary Insurance:[employer] [place] MEDICAID [facility] Number: [id number] Date:2024-01-31 KOAML AKOSUARDOB: [id number] [place] [address] [facility] 06/29/2025 Primary Insuranc e:BLUE CARD PPO OOSPolicy Number: [id number] e Date:0256-07-61Hsrc Name:Raul Gomez AKOSUARDOB: [id number] [place] [address] [facility] 06/29/2025 Secondary Insurance:HUMANA MEDICAID [facility] Number: [id number] Date:7114-93-16Hloj Name:Chaitanya Gomez AKOSUARDOB: [id number] [place] [address] [facility] 06/07/2025 KOMAL AKOSUARDOB: [place] [address]Cpc: (HP) Primary Insurance:BCBSPolicy Number: [id number] e Date:2022-11-01 KOMAL AKOSUARDOB: [id number] [place] [address] [facility] 06/07/2025 Secondary Insurance:[employer] [place] MEDICAID [facility] Number: [id number] Date:2024-01-31 KOMAL OLIVERDOB: [id number] [place] [address] [facility] 04/06/2025 Primary Insuranc e:BLUE CARD PPO OOSPolicy Number: [id number] e Date:3123-63-02Uoom Name:Raul SOUTHRDOB: [id number] [place] [address] [facility] 04/06/2025 Secondary Insurance:[place] Number: [id number] Date:9118-60-08Dcjl Name:Chaitanya SOUTHRDOB: [id number] [place] [address] [facility] 04/06/2025 Primary Insuranc e:BLUE CARD PPO OOSPolicy Number: [id number] e Date:6651-04-07Mtph Name:Raul Gomez AKOSUARDOB: [id number] [place] [address] [facility] 04/06/2025 Secondary Insurance:[place] Number: [id number] Date:3396-60-59Znlg Name:Chaitanya Gomez AKOSUARDOB: [id number] [place] [address] [facility] 03/09/2025 Primary Insuranc e:BLUE CARD PPO OOSPolicy Number: [id number] e Date:2331-74-47Fosp Name:Raul Gomez AKOSUARDOB: [id number] [place] [address] [facility] 03/09/2025 Secondary Insurance:[place] Number: [id number] Date:7769-78-19Dxov Name:Chaitanya SOUTHRDOB: [id number] [place] [address] [facility] 03/07/2025 KOMAL AKOSUARDOB: [place] [address]Cxt: (HP) Primary Insurance:BCBSPolicy Number: [id number] e Date:2022-11-01 KOMAL OLIVERDOB: [id number] [place] [address] [facility] 03/07/2025 Secondary Insurance:[facility] [place]ID [place] Number: [id number] Date:2024-01-31 KOMAL OLIVERDOB: [id number] [place] [address] [facility] 03/07/2025 KOMAL OLIVERDOB: [place] [address]Vuk: (HP) Primary Insurance:VENKATABSPolicy Number: [id number] e Date:2022-11-01 KOMAL OLIVERDOB: [id number] [place] [address] [facility] 03/07/2025 Secondary Insurance:[facility] [place]ID [place] Number: [id number] Date:2024-01-31 KOMAL OLIVERDOB: [id number] [place] [address] [facility] 01/12/2025 Komalyemi [address] [place] [address]Vct: (HP) Primary Insurance:Barbara HASTINGS/Nixon Number: [id number] Date:2024-12-20 Jomar AlarconB: [id number] [place] [address]Bue: (HP) [facility] 01/12/2025 Secondary Insurance:[employer] [place] MedicaidPolicy Number: [id number] Date:1147-29-24TM [address] [place] [address]OL: Komal Jason OliverDOB: [id number] [place] [address]Jnf: (HP) [facility] 01/12/2025 Tertiary Insurance:Self PayPolicy Number: Effective Date:2025-01-08 NOT GIVENUNK [facility] 01/09/2025 KOMAL OLIVERDOB: [address] [facility] [place] [address]Biw: (HP) Primary Insurance:BCBSPolicy Number: [id number] e Date:2022-11-01 KOMAL OLIVERDOB: [id number] [place] [address] [facility] 01/09/2025 Secondary Insurance:[employer] [place] Number: [id number] Date:2024-01-31 KOMAL OLIVERDOB: [id number] [place] [address] [facility] 10/10/2024 KOMAL OLIVERDOB: [place] [address]Qun: (HP) Primary Insurance:BCBSPolicy Number: [id number] e Date:2022-11-01 KOMAL OLIVERDOB: [id number] [place] [address] [facility] 10/10/2024 Secondary Insurance:[employer] [place] Number: [id number] Date:2024-01-31 KOMAL OLIVERDOB: [id number] [place] [address] [facility] 08/10/2024 KOMAL OLIVERDOB: [place] [address]Fxh: (HP) Primary Insurance:BCBSPolicy Number: [id number] e Date:2022-11-01 KOMAL OLIVERDOB: [id number] [place] [address] [facility] 08/10/2024 Secondary Insurance:[employer] MEDICAID [facility] Number: [id number] Date:2024-01-31 KOMAL BLAND: [id number] [place] [address] [facility]
[2025-07-29 13:42] VITALS: BP 117/75; PULSE 83; TEMP 36.7; O2SAT 98; BMI 22.3
--- OUTSIDE RECORDS SUMMARY | 2025-07-29 14:10 | XMS_ITS | Clinical Summary ---
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 118 mL 11 4 Active clindamycin (Cleocin T) 1 % lotionIndicatio ns:Acne vulgaris Apply thin layer to face, once daily in the morning, 30 day supply 60 mL 11 4 Active spironolactone (Aldactone) 50 MG tabletIndicatio ns:Acne vulgaris Take 1 tablet, by mouth, once daily, 30 days 30 tablet 3 5 Active topiramate (Topamax) 25 MG tablet Take by mouth 5 Active rizatriptan (Maxalt) 10 MG tablet Take 10 mg by mouth 5 Active omeprazole (PriLOSEC) [address] capsule Take 1 capsule by mouth in the morning. 5 Active busPIRone (Buspar) 10 MG tablet Take 1 tablet by mouth in the morning. 5 Active FLUoxetine (PROzac) 20 MG capsule Take 1 capsule by mouth in the morning. 5 Active linaCLOtide (Linzess) 72 MCG capsule Take 1 capsule by mouth in the morning. 5 Active ISOtretinoin (Accutane) 30 MG capsuleIndicati ons:Acne vulgaris Take 1 capsule daily, by mouth, 30 days 30 capsule Active Active Problems No known active problems Encounters Date Type Department Care Team Description 07/09/2025 11:30 AM EDT Office Visit [facility] [address] [place] [address] Noemy Belcher PA Acne vulgaris (Primary Dx); High risk medication use 07/09/2025 Bamboo flowsheet [facility] [address] [place] [address] Noemy Belcher PA 07/09/2025 Travel 06/07/2025 1:10 PM EDT Office Visit [facility] [address] [place] [address] Noemy Belcher PA Acne vulgaris (Primary Dx); High risk medication use 06/07/2025 Bamboo flowsheet [facility] [address] [place] [address] Noemy Belcher PA 06/07/2025 Travel from Last 3 Months Family History Medical History Relation Name Comments Graves' disease Mother Multiple sclerosis Mother Relation Name Status Comments Mother Social History Tobacco Use Types Packs/Day Years Used Date Smoking Tobacco: Never Smokeless Tobacco: Never Alcohol Use Standard Drinks/Week Comments Not Currently 0 (1 standard drink = 0.6 oz pur e alcohol) caffeine: none Comments No Sex and Gender Information Value Date Recorded Sex Assigned at Not on file Legal Sex Female 10:04 PM EDT Gender Identity Not on file Sexual Orientation Not on file Occupation Industry Job Start Date Job End Date [employer]soon Not on file Not on file Not on file Last Filed Vital Signs Vital Sign Reading Time Taken Comments Blood Pressure 120/78 03/07/2025 11:09 AM EDT Pulse - - Temperature - - Respiratory Rate - - Oxygen Saturation - - Inhaled Oxygen Concentration - - Weight 67.6 kg (149 lb) 06/07/2025 1:52 PM EDT Height 166.4 cm (5' 5.5 ) 06/15/2024 2:37 PM EDT Body Mass Index 24.42 06/15/2024 2:37 PM EDT Plan of Treatment Upcoming Encounters Date Type Department Care Team (Late st Contact Info) Description 08/01/2025 2:30 PM EDT Office Visit [facility] [address] [place] [phone] Tye Schulz MD [address] [place] [address] 08/08/2025 11:00 AM EDT Office Visit [facility] [place] [facility] [address] [place] [address] Noemy Belcher PA [address] [place] [address] Health Maintenance Due Date Last Done Comments Influenza Vaccine (#1) 2025 , 08/07/2016, 08/09/2015, Additional history exists Procedures Procedure Name Priority Date/Time Associated Diagnosis Comments POCT , URINE Routine 07/09/2025 11:42 AM EDT Acne vulgaris High risk medication use ALT Routine 06/07/2025 2:03 PM EDT Acne vulgaris High risk medication use TRIGLYCERIDES Routine 06/07/2025 2:03 PM EDT Acne vulgaris High risk medication use POCT , URINE Routine 06/07/2025 1:50 PM EDT Acne vulgaris from Last 3 Months Results * POCT , urine manually resulted (07/09/2025 11:42 AM EDT) Only the most recent of2 resultswithin the time period is included. Preg Test, Ur Negative Negative Urine 07/09/2025 11:4 2 AM EDT Noemy [facility] POINT OF CARE TEST ENTER/EDIT ORDERABLES Final Result * Triglycerides (06/07/2025 2:03 PM EDT) Triglycerides 48 0 - 149 mg/dL [facility] Blood Venous blood specimen / Unknown 06/07/2025 2:03 PM EDT 06/07/2025 Narrative [facility] - 06/08/2025 6:07 AM EDT Performed at: [address] [id number] Channeler: Suresh Fonseca PhD, Phone: [phone] [facility] BLOOD ORDERABLES Final Res ult Performing Organization Address [facility] Co de Phone Number [facility] * ALT (06/07/2025 2:03 PM EDT) ALT 30 0 - 32 IU/L [facility] Blood Venous blood specimen / Unknown 06/07/2025 2:03 PM EDT 06/07/2025 Narrative [facility] - 06/08/2025 6:07 AM EDT Performed at: [address] [id number] Channeler: Suresh Fonseca PhD, Phone: [phone] [facility] LAB BLOOD ORDERABLES Final Res ult Performing Organization Address [facility] Co de Phone Number [facility] from Last 3 Months Insurance [facility] [employer] [place] [place] Care Teams Yard Crane Operator Relationship Specialty Start Date End Date Vel Dean DC [address] [phone] PCP - General 05/14/23
--- OUTSIDE RECORDS SUMMARY | 2025-07-29 14:10 | XMS_ITS | Clinical Summary ---
Author Organization [facility] Address [address] [place] [id number] Care Team Providers Care Theatrical Trouper Name Role Phone Tye Schulz MD Unavailable [phone] Medications busPIRone (BUSPAR) 10 mg tablet Take 1 tablet by mouth once daily. 11/10/19 25 Active Clindamycin Phosphate (CLEOCIN T) 1 % lotion Apply to affected area two times a day. Active FLUoxetine (PROZAC) 20 mg capsule Take 1 capsule by mouth once daily. 11/10/19 25 Active CAPMIST DM 60-15-400 mg tab Take 1 tablet by mouth every 4 hours as needed. 01/23/20 25 Active LINZESS 72 mcg capsule Take 1 capsule by mouth once daily. 02/18/20 25 Active omeprazole (PRILOSEC) 20 mg capsule Take 1 capsule by mouth once daily. 02/18/20 25 Active spironolactone (ALDACTONE) 50 mg tablet Take 50 mg by mouth once daily. 01/10/20 25 Active Sulfacetamide Sodium, Acne, 10 % susp apply a thin layer to the face DAILY FOR 30 DAYS Active isotretinoin (ACCUTANE PO) Take by mouth. A ctive INTRAUTERINE DEVICE, IUD, INTRAUTERINE by INTRAUTERINE route. Active metoprolol succinate ER (TOPROL XL) 25 mg 24 hr tabletIndication s:Chronic migraine without aura, intractable, without status migrainosus Take 1 tablet by mouth once daily. 30 tablet 06/29/20 026 Active topiramate (TOPAMAX) 100 mg tabletIndication s:Chronic migraine without aura, intractable, without status migrainosus Take 1 tablet by mouth daily at bedtime. 30 tablet 06/29/20 026 Active SUMAtriptan (IMITREX) 100 mg tabletIndication s:Chronic migraine without aura, intractable, without status migrainosus Take 1 tablet by mouth as needed for migraine headache (see administration instructions). May repeat dose after 2 hours if needed. Maximum daily dose is 200 mg per day. Max 9 to 10 days a month. 12 tablet 06/29/20 026 Active Active Problems No known active problems Encounters Date Type Department Care Team Description 06/29/2025 1:00 PM EDT [facility] Neurology [address] [place] [phone] Nitza Cerda PA-C Chronic migraine without aura, intractable, without status migrainosus (Primary Dx) 06/29/2025 Travel from Last 3 Months Social History Tobacco Use Types Packs/Day Years Used Date Smoking Tobacco: Never Passive Smoke Exposure: Never Smokeless Tobacco: Never Alcohol Use Standard Drinks/Week Comments Not Currently 0 (1 standard drink = 0.6 oz pur e alcohol) PHQ-2 Answer Date Recorded PHQ-2 score 0 06/29/2025 Area Deprivation Index Answer Date Fabien rded National Score (1-100), lower number is lower ri sk 93 03/09/2025 State Score (1-10), lower number is lower risk 9 03/09/2025 Data from: https://www.neighborhoodatlas.medicine.[facility].edu/. Last address used for calculation [address] [place] [address] 03/09/2025 Comments No Sex and Gender Information Value Date Recorded Sex Assigned at Not on file Legal Sex Female 2:19 PM EST Gender Identity Not on file Sexual Orientation Not on file Last Filed Vital Signs Vital Sign Reading Time Taken Comments Blood Pressure 130/74 04/06/2025 12:46 PM EDT Pulse 80 04/06/2025 12:46 PM EDT Temperature 36.7 C (98 F) 04/06/2025 12:46 PM EDT Respiratory Rate 20 04/06/2025 12:46 PM EDT Oxygen Saturation 100% 04/06/2025 12:46 PM EDT Inhaled Oxygen Concentration - - Weight 66.5 kg (146 lb 9.7 oz) 04/06/2025 12:46 PM EDT Height 165.1 cm (5' 5 ) 04/06/2025 12:46 PM EDT Body Mass Index 24.4 04/06/2025 12:46 PM EDT Plan of Treatment Health Maintenance Due Date Last Done Comments Peds To Adult Transition Ini tial Discussion 2016 HPV Vaccine (2 - 2-dose series) 01/26/2017 6 Peds To Adult Transition Bailey ual Assessment 2018 Meningococcal B Vaccine (1 o f 2 - Standard) 2020 Anxiety Screening 2022 Chlamydia Screening (18-) 2022 Depression Screening 2022 GC (Gonorrhea) Screening (18-) 2022 HIV Screening 2022 Hepatitis C Screening 2022 Pneumococcal Vaccine (1 of 2 - PCV) 2023 03/21/2007, 07/27/2005, 03/16/2005, Additional history exists Shingrix Vaccine (1 of 2) 2023 Influenza Vaccine (#1) 2025 , 08/07/2016, 08/09/2015, Additional history exists Cervical Cancer Screening 2025 DTaP,Tdap,Td Vaccine (7 - Td or Tdap) 01/02/2034 01/03/2024, 07/29/2016, 03/21/2007, Additional history exists Hepatitis B Vaccine Completed 03/16/2005, 2004, 2004 Insurance [facility] PPO OOS [employer] Care Teams Theatrical Trouper Relationship Specialty Start Date End Date Tye Schulz MD [address] [facility] [address] [place] [address] Referring Obstetrics 03/08/25
--- OUTSIDE RECORDS SUMMARY | 2025-07-29 14:10 | XMS_ITS | Encounter Summary ---
Author Organization [facility] Address [address] [facility] [place] [address] Care Team Providers Care Hvac Specialist Name Role Phone Vel Dean DC Primary Care Provider [phone] Encounter Details Date Type Department Care Team ([facility] Contact Info) Description 06/08/2023 Abstract [facility] [address] [place] [address] Tye Schulz MD [address] [place] [address] Social History Tobacco Use Types Packs/Day Years Used Date Smoking Tobacco: Never Smokeless Tobacco: Never Alcohol Use Standard Drinks/Week Comments Not Currently 0 (1 standard drink = 0.6 oz pur e alcohol) caffeine: none Comments Yes Sex and Gender Information Value Date Recorded Sex Assigned at Not on file Legal Sex Female 10:04 PM EDT Gender Identity Not on file Sexual Orientation Not on file Occupation Industry Job Start Date Job End Date [employer]soon Not on file Not on file Not on file documented as of this encounter Plan of Treatment Upcoming Encounters Date Type Department Care Team (Late Contact Info) Description 08/01/2025 2:30 PM EDT Office Visit [facility] [address] [place] [address] Tye Schulz MD [address] [place] [address] 08/08/2025 11:00 AM EDT Office Visit [facility] [address] [place] [address] Noemy Belcher PA [address] [facility] [address] [place] [address] documented as of this encounter Visit Diagnoses Not on filedocumented in this encounter Care Teams Hvac Specialist Relationship Specialty Start Date End Date Vel Dean DC [address] [place] [address] PCP - General 05/14/23 documented as of this encounter
--- OUTSIDE RECORDS SUMMARY | 2025-07-29 14:10 | XMS_ITS | Encounter Summary ---
Author Organization [facility] Address [address] [place] [address] Care Team Providers Care Group Marketing Vp Name Role Phone Vel Dean DC Primary Care Provider [phone] Encounter Details Date Type Department Care Team (Late Contact Info) Description 12/08/2023 Orders Only [facility] [address] [place] [phone] Tye Schulz MD [address] [place] [address] Social History Tobacco Use Types [...] 08/01/2025 2:30 PM EDT Office Visit [facility] [address] [place] [address] Tye Scuhlz MD [address] [place] [address] 08/08/2025 11:00 AM EDT Office Visit [facility] [address] [place] [address] Noemy Belcher PA [address] [facility] [address] [place] [address] documented as of this encounter Procedures Procedure Name Priority Date/Time Associated Diagnosis Comments ULTRASOUND : OBSTETRICS Routine 09/02/20 12:03 PM EDT documented in this encounter Results * ULTRASOUND : OBSTETRICS (09/02/2023 12:03 PM EDT) Anatomical Region Laterality Modality Radiographic Beatriz ging us Tye Schulz MD IMG XR PROCEDURES Final Result documented in this encounter Visit Diagnoses Not on filedocumented in this encounter Care Teams Group Marketing Vp Relationship Specialty Start Date End Date Vel Dean DC [address] [place] [address] PCP - General 05/14/23 documented as of this encounter
--- OUTSIDE RECORDS SUMMARY | 2025-07-29 14:10 | XMS_ITS | Encounter Summary ---
Author Organization [facility] Address [address] [place] [address] Care Team Providers Care Shirt Closer Name Role Phone Vel Dean DC Primary Care Provider [phone] Encounter Details Date Type Department Care Team ([facility] Contact Info) Description 11/04/2023 Abstract [facility] [address] [place] [address] Tye Schulz MD [address] [place] [address] Social History Tobacco Use Types [...] [address] [place] [address] Tye Schulz MD [address] [place] [address] 08/08/2025 11:00 AM EDT Office Visit [facility] [address] [place] [phone] Noemy Belcher PA [address] [facility] [address] [place] [address] documented as of this encounter Visit Diagnoses Not on filedocumented in this encounter Care Teams Shirt Closer Relationship Specialty Start Date End Date Vel Dean DC [address] [place] [address] PCP - General 05/14/23 documented as of this encounter
--- OUTSIDE RECORDS SUMMARY | 2025-07-29 14:10 | XMS_ITS | Encounter Summary ---
Author Organization [facility] Address [address] [place] [address] Care Team Providers Care Easement Man Name Role Phone Vel Dean DC Primary Care Provider [phone] Encounter Details Date Type Department Care Team ([facility] Contact Info) Description 08/05/2023 Abstract [facility] [address] [place] [address] Tye Schulz MD [address] [place] [address] Social History Tobacco Use Types [...] [address] [place] [address] Tye Schulz MD [address] [place] [address] 08/08/2025 11:00 AM EDT Office Visit [facility] [address] [place] [phone] Noemy Belcher PA [address] [facility] [address] [place] [address] documented as of this encounter Visit Diagnoses Not on filedocumented in this encounter Care Teams Easement Man Relationship Specialty Start Date End Date Vel Dean DC [address] [place] [address] PCP - General 05/14/23 documented as of this encounter
--- NOTE | 2025-07-29 14:32 | ED_ITS ---
HPI HPI - General Adult General Chief complaint: Nausea/Vomiting/Diarrhea Stated complaint: VOMITING, CHILLS, Time Seen by Provider: 07/29/25 14:29 Source: patient Mode of arrival: walk-in Limitations: no limitations History of Present Illness HPI narrative: 20-year-old female presented to the emergency department for nausea and vomiting. It has been this way for 2 days. She has an IUD so she does not have periods. She has had no diarrhea and has not been around anybody has been sick. Related Data Home Medications ?Medication ?Instructions ?Recorded ?Confirmed isotretinoin 30 mg capsule 30 mg PO DAILY 07/29/25 (Claravis) metoprolol succinate 25 mg 25 mg PO DAILY 07/29/25 tablet,extended release 24 hr sumatriptan succinate 100 mg tablet 100 mg PO Q2H PRN migraine headache 07/29/25 07/29/25 topiramate 100 mg tablet 100 mg PO BEDTIME 07/29/25 0 07/29/25 Previous Rx's ?Medication ?Instructions ?Recorded cetirizine 5 mg-pseudoephedrine ER 1 tab PO BID #10 ta bs 07/04/24 120 mg tablet,extended release,12hr (Zyrtec-D) ondansetron 4 mg disintegrating 4 mg PO Q6H PRN nausea and 07/29/25 tablet vomiting #20 tabs Allergies Allergy/AdvReac Type Severity Reaction Status Date / Time No Known Drug Allergies Allergy Verified 07/29/25 13:41 Review of Systems ROS Narrative A ten point review of systems is negative except as noted above. PFSH PFSH Social History Little interest or pleasure in doing things: not at all Feeling down, depressed, or hopeless: not at all Exam Narrative Exam Narrative: Nurses note and vital signs reviewed and patient is not hypoxic. General:The patient appears in no apparent distress.Patient is resting comfortably on cart. Skin:Warm, dry, no pallor noted.There is no rash noted. Head:Normocephalic, atraumatic Eye: Normal conjunctiva, no drainage Ears, Nose, Mouth, and Throat: oral mucosa is moist. Nares patent. Cardiovascular:Regular Rate and Rhythm Respiratory:Patient is in no distress, no accessory muscle use, lungs are clear to auscultation, no wheezing, rales or rhonchi Back:non-tender GI: Soft and nontender Musculoskeletal: All joints have full range of motion Neurological:A&O, normal speech Psychiatric:Cooperative Constitutional Vital Signs, click to edit/add: Last Vital Signs Temp 98.1 F 07/29/25 13:42 Pulse 83 07/29/25 13:42 Resp 20 07/29/25 13:42 BP 117/75 07/29/25 13:42 Pulse Ox 98 07/29/25 13:42 Course Vital Signs Vital signs: Vital Signs Temperature 98.1 F 07/29/25 13:42 Pulse Rate 83 07/29/25 13:42 Respiratory Rate 20 07/29/25 13:42 Blood Pressure 117/75 07/29/25 13:42 Pulse Oximetry 98 07/29/25 13:42 Temperature 98.1 F 07/29/25 13:42 Pulse Rate 83 07/29/25 13:42 Respiratory Rate 20 07/29/25 13:42 Blood Pressure 117/75 07/29/25 13:42 Pulse Oximetry 98 07/29/25 13:42 Medical Decision Making MDM Narrative Medical decision making narrative: Her workup is negative, she is not . She is prescribed Zofran and is feeling improved after IV fluids and Zofran. Treatment diagnosis and follow-up were discussed with the patient. Differential Diagnosis Differential Diagnosis: Nausea and vomiting, , dehydration Lab Data Lab results reviewed: Yes I reviewed the patient's lab results Labs: Lab Results 07/29/25 07/29/25 Range/Units 14:42 15:43 WBC 7.5 (4.0-11.0) 10^3/uL RBC 4.34 (4.20-5.40) 10^6/uL Hgb 13.3 (12.0-16.0) g/dL Hct 37.9 (36.0-48.0) % MCV 87.3 (81.0-99.0) fL MCH 30.6 (26.7-34.0) pg MCHC 35.1 (29.9-35.2) g/dL RDW 11.7 (11.0-15.0) % Plt Count 277 (150-450) 10^3/uL MPV 10.9 (9.5-13.5) fL Neut % (Auto) 55.7 (43.0-75.0) % Lymph % (Auto) 33.4 (20.5-60.0) % [place] % (Auto) 8.4 (1.7-12.0) % Eos % (Auto) 1.9 (0.9-7.0) % Baso % (Auto) 0.5 (0.2-2.0) % Neut # (Auto) 4.2 (1.4-6.5) 10^3/uL Lymph # (Auto) 2.5 (1.2-3.8) 10^3/uL [place] # (Auto) 0.6 (0.3-0.8) 10^3/uL Eos # (Auto) 0.1 (0.0-0.7) 10^3/uL Baso # (Auto) 0.0 (0.0-0.1) 10^3/uL Abs Immat Gran (auto) 0.01 (0.00-0.03) 10^3/uL Imm/Tot Granulo (auto) 0.1 (0.0-0.5) % Sodium 141 (136-145) mmol/L Potassium 3.5 (3.5-5.1) mmol/L Chloride 103 (98-107) mmol/L Carbon Dioxide 26.4 (21.0-32.0) mmol/L Anion Gap 15.1 BUN 9.0 (7.0-18.0) mg/dL Creatinine 0.76 (0.55-1.02) mg/dL Est GFR ( Amer) >60 (>=60 mL/min/1.73m^2) Est GFR (Non-Af Amer) >60 (>=60 mL/min/1.73m^2) BUN/Creatinine Ratio 11.8 Glucose 94 (74-106) mg/dL Calcium 9.1 (8.5-10.1) mg/dL Serum HCG, Qual Negative (NEGATIVE) Urine Color Yellow (YELLOW) Urine Clarity Clear (CLEAR) Urine pH 6.0 (5.0-9.0) Ur Specific [place] 1.025 (1.005-1.025) Urine Protein Negative (NEG/TRACE) mg/dL Urine Glucose (UA) Negative (NEGATIVE) mg/dL Urine Ketones Trace A (NEGATIVE) mg/dL Urine Occult Blood Negative (NEGATIVE) Urine Nitrite Negative (NEGATIVE) Urine Bilirubin Negative (NEGATIVE) Urine Urobilinogen 1.0 (0.2-1.0) EU/dL Ur Leukocyte Esterase Negative (NEGATIVE) Urine RBC 0-2 (0-2) #/HPF Urine WBC 2-5 A (NONE SEEN) #/HPF Ur Squamous Epith Cells Moderate A (NONE/RARE) #/LPF Urine Crystals None seen (None Seen) #/HPF Urine Bacteria Trace A (NONE SEEN) #/HPF Urine Casts None seen (NONE SEEN) #/LPF Urine Mucus Large A (NONE SEEN) Discharge Plan Discharge Chief Complaint: Nausea/Vomiting/Diarrhea Clinical Impression: Nausea & vomiting Patient Disposition: Home, Self-Care Time of Disposition Decision: 16:01 Condition: Good Mode of Transportation: Private Vehicle Prescriptions / Home Meds: New ondansetron 4 mg tablet,disintegrating 4 mg PO Q6H PRN (Reason: nausea and vomiting) Qty: 20 0RF No Action cetirizine-pseudoephedrine [Zyrtec-D] 5-120 mg tablet extended release 12 hr 1 tab PO BID Qty: 10 0RF isotretinoin [Claravis] 30 mg capsule 30 mg PO DAILY metoprolol succinate 25 mg tablet extended release 24 hr 25 mg PO DAILY sumatriptan succinate 100 mg tablet 100 mg PO Q2H PRN (Reason: migraine headache) topiramate 100 mg tablet 100 mg PO BEDTIME Print Language: Bangladeshi Referrals: DEANNE GIRON [Primary Care Provider, Family Practice] - 1 week
[2025-07-29] MEDS: 0.9 % SODIUM CHLORIDE 1,000 ML 1000 ML IV (14:46)
[2025-07-29 14:50] LABS: Hematocrit 37.9 % (36.0-48.0); Hemoglobin 13.3 g/dL (12.0-16.0); Immature Granulocytes Abs Auto 0.01 10^3/uL (0.00-0.03); Immature Granulocytes Pct Auto 0.1 % (0.0-0.5); Lymphocytes Absolute Auto 2.5 10^3/uL (1.2-3.8); Mean Corpuscular HGB Conc 35.1 g/dL (29.9-35.2); Mean Corpuscular Hemoglobin 30.6 pg (26.7-34.0); Mean Corpuscular Volume 87.3 fL (81.0-99.0); Platelet Count 277 10^3/uL (150-450); Red Blood Count 4.34 10^6/uL (4.20-5.40); White Blood Count 7.5 10^3/uL (4.0-11.0)
[2025-07-29 15:09] LABS: Blood Urea Nitrogen 9.0 mg/dL (7.0-18.0); Calcium 9.1 mg/dL (8.5-10.1); Chloride 103 mmol/L (98-107); Estimated GFR (African America >60 (>=60 mL/min/1.73m^2); Estimated GFR (Non-African Ame >60 (>=60 mL/min/1.73m^2); Glucose 94 mg/dL (74-106); Potassium 3.5 mmol/L (3.5-5.1); Sodium 141 mmol/L (136-145)
[2025-07-29 15:16] LABS: Anion Gap 15.1; Carbon Dioxide 26.4 mmol/L (21.0-32.0)
[2025-07-29 15:50] LABS: Glucose Urine UA NEGATIVE (NEGATIVE)
[2025-07-29 16:07] LABS: Cast Seen? NONE SEEN #/LPF (NONE SEEN); Crystals Seen? None Seen #/HPF (None Seen)
[2025-07-29 16:13] VITALS: BP 127/78; PULSE 63; O2SAT 100
== END 2025-07-29 16:15 | disposition home or self-care (01) ==
PROVIDERS: Emergency Provider Emergency Medicine; PCP Family Medicine
DX: R11.2 Nausea with vomiting, unspecified (principal)
CPT/HCPCS: 36415; 80048; 81001; 84703; 85025; 96361; 96374; 99284; 99285; J2405